=== PATIENT | female | born 1970 | race Caucasian/White ===

== ENCOUNTER 2018-01-26 16:34 | Emergency (ER) | payer BC, OTHER ==
[2018-01-26 16:52] VITALS: RESP 18
[2018-01-26] MEDS ORDERED: SODIUM CHLORIDE 0.9% 1,000 ML IV STA (16:57)
[2018-01-26] MEDS ORDERED: MECLIZINE 12.5 MG TAB PO STA (16:57)
[2018-01-26] MEDS ORDERED: ONDANSETRON 4 MG/2 ML VIAL IVP STA (17:18)
--- NOTE | 2018-01-26 17:50 | ED ---
Dizziness HPI - General Chief Complaint: Dizziness Stated Complaint: dizziness/vomiting Time Seen by Provider: 01/26/18 16:57 Source: patient, RN notes reviewed Mode of arrival: ambulatory Limitations: no limitations - History of Present Illness Initial Comments: 47-year-old female presents emergency Department with chief complaint of dizziness. Patient states symptoms started around 2 PM while at work. She states that she had a leave that she did not feel well. She states she did recently dizzy and she has been vomiting. She states dizziness is better at rest and she states it's essentially gone when she is not moving. Patient states that she's never had any like this in the past. She had minimal runny nose this morning denies any ear pain, severe nasal congestion, cough, chest pain, headache, blurred vision, focal weakness. Patient denies any head trauma. Denies any abdominal pain. Patient states she has had a stress test with the last one year but no acute abnormality she has no history of hypertension, diabetes - Related Data Previous Rx's Medication Instructions Recorded Meclizine [Antivert] 25 mg PO TID PRN #15 tab 01/26/18 Ondansetron Odt [Zofran Odt] 4 mg PO Q8HR PRN #10 tab 01/26/18 Allergies Allergy/AdvReac Type Severity Reaction Status Date / Time No Known Allergies Allergy Verified 01/26/18 17:11 Review of Systems ROS Statement: Those systems with pertinent positive or pertinent negative responses have been documented in the HPI. ROS Other: All systems not noted in ROS Statement are negative. Past Medical History Past Medical History: No Reported History History of Any Multi-Drug Resistant Organisms: None Reported Past Surgical History: Hysterectomy Past Psychological History: No Psychological Hx Reported Smoking Status: Never smoker Past Alcohol Use History: Occasional General Exam Limitations: no limitations General appearance: alert, in no apparent distress Head exam: Present: atraumatic, normocephalic, normal inspection Eye exam: Present: normal appearance, PERRL, EOMI. Absent: scleral icterus, conjunctival injection, periorbital swelling ENT exam: Present: normal exam, normal oropharynx, mucous membranes moist, TM's normal bilaterally, normal external ear exam Neck exam: Present: normal inspection, full ROM. Absent: tenderness, meningismus, lymphadenopathy Respiratory exam: Present: normal lung sounds bilaterally. Absent: respiratory distress, wheezes, rales, rhonchi, stridor Cardiovascular Exam: Present: regular rate, normal rhythm, normal heart sounds. Absent: systolic murmur, diastolic murmur, rubs, gallop, clicks GI/Abdominal exam: Present: soft, normal bowel sounds. Absent: distended, tenderness, guarding, rebound, rigid Back exam: Absent: CVA tenderness (R), CVA tenderness (L) Neurological exam: Present: alert, oriented X3, CN II-XII intact Skin exam: Present: warm, dry, intact, normal color. Absent: rash Course Vital Signs 01/26/18 01/26/18 16:49 19:25 Temperature 98.1 F Pulse Rate 65 61 Respiratory 18 18 Rate Blood Pressure 159/79 151/89 O2 Sat by Pulse 100 98 Oximetry - Reevaluation(s) Reevaluation #1: 01/26/18 19:53 Patient does feel improved at this time she does have mild residual dizziness. Reevaluation #2: 01/26/18 20:07 Patient was ambulated with me with no difficulty. EKG Findings - EKG Comments: EKG Findings:: EKG performed at 17:50 normal sinus rhythm with rate of 72 LA 148 QRS 102/ QtQTC 418/457 Medical Decision Making - Medical Decision Making 47-year-old female presents emergency Department for complaints of dizziness worse with movement. Patient had lab work, urinalysis, EKG which is unremarkable. She did have improvement with Antivert, antiemetics. Patient will be discharged with antiemetics, Antivert. Patient will return for any worsening symptoms and follow-up with her PCP. - Lab Data Result diagrams: 01/26/18 17:29 01/26/18 17:29 Lab Results 01/26/18 01/26/18 01/26/18 Range/Units 17:29 17:29 17:29 WBC 12.3 H (3.8-10.6) k/uL RBC 4.44 (3.80-5.40) m/uL Hgb 12.7 (11.4-16.0) gm/dL Hct 36.7 (34.0-46.0) % MCV 82.8 (80.0-100.0) fL MCH 28.6 (25.0-35.0) pg MCHC 34.6 (31.0-37.0) g/dL RDW 13.2 (11.5-15.5) % Plt Count 287 (150-450) k/uL Neutrophils % 88 % Lymphocytes % 8 % Monocytes % 3 % Eosinophils % 1 % Basophils % 0 % Neutrophils # 10.8 H (1.3-7.7) k/uL Lymphocytes # 1.0 (1.0-4.8) k/uL Monocytes # 0.3 (0-1.0) k/uL Eosinophils # 0.1 (0-0.7) k/uL Basophils # 0.0 (0-0.2) k/uL Sodium 140 (137-145) mmol/L Potassium 3.8 (3.5-5.1) mmol/L Chloride 107 (98-107) mmol/L Carbon Dioxide 23 (22-30) mmol/L Anion Gap 10 mmol/L BUN 13 (7-17) mg/dL Creatinine 0.67 (0.52-1.04) mg/dL Est GFR (CKD-EPI)AfAm >90 (>60 ml/min/1.73 sqM) Est GFR (CKD-EPI)NonAf >90 (>60 ml/min/1.73 sqM) Glucose 126 H (74-99) mg/dL Calcium 9.9 (8.4-10.2) mg/dL Magnesium 1.8 (1.6-2.3) mg/dL Total Bilirubin 0.5 (0.2-1.3) mg/dL AST 46 H (14-36) U/L ALT 71 H (9-52) U/L Alkaline Phosphatase 64 (38-126) U/L Troponin I <0.012 (0.000-0.034) ng/mL Total Protein 8.2 (6.3-8.2) g/dL Albumin 4.8 (3.5-5.0) g/dL Urine Color Urine Appearance (Clear) Urine pH (5.0-8.0) Ur Specific [place] (1.001-1.035) Urine Protein (Negative) Urine Glucose (UA) (Negative) Urine Ketones (Negative) Urine Blood (Negative) Urine Nitrite (Negative) Urine Bilirubin (Negative) Urine Urobilinogen (<2.0) mg/dL Ur Leukocyte Esterase (Negative) Urine RBC (0-5) /hpf Urine WBC (0-5) /hpf Ur Squamous Epith Cells (0-4) /hpf Urine Mucus (None) /hpf 01/26/18 Range/Units 18:55 WBC (3.8-10.6) k/uL RBC (3.80-5.40) m/uL Hgb (11.4-16.0) gm/dL Hct (34.0-46.0) % MCV (80.0-100.0) fL MCH (25.0-35.0) pg MCHC (31.0-37.0) g/dL RDW (11.5-15.5) % Plt Count (150-450) k/uL Neutrophils % % Lymphocytes % % Monocytes % % Eosinophils % % Basophils % % Neutrophils # (1.3-7.7) k/uL Lymphocytes # (1.0-4.8) k/uL Monocytes # (0-1.0) k/uL Eosinophils # (0-0.7) k/uL Basophils # (0-0.2) k/uL Sodium (137-145) mmol/L Potassium (3.5-5.1) mmol/L Chloride (98-107) mmol/L Carbon Dioxide (22-30) mmol/L Anion Gap mmol/L BUN (7-17) mg/dL Creatinine (0.52-1.04) mg/dL Est GFR (CKD-EPI)AfAm (>60 ml/min/1.73 sqM) Est GFR (CKD-EPI)NonAf (>60 ml/min/1.73 sqM) Glucose (74-99) mg/dL Calcium (8.4-10.2) mg/dL Magnesium (1.6-2.3) mg/dL Total Bilirubin (0.2-1.3) mg/dL AST (14-36) U/L ALT (9-52) U/L Alkaline Phosphatase (38-126) U/L Troponin I (0.000-0.034) ng/mL Total Protein (6.3-8.2) g/dL Albumin (3.5-5.0) g/dL Urine Color Yellow Urine Appearance Cloudy H (Clear) Urine pH 7.0 (5.0-8.0) Ur Specific [place] 1.012 (1.001-1.035) Urine Protein Trace H (Negative) Urine Glucose (UA) Negative (Negative) Urine Ketones Negative (Negative) Urine Blood Negative (Negative) Urine Nitrite Negative (Negative) Urine Bilirubin Negative (Negative) Urine Urobilinogen <2.0 (<2.0) mg/dL Ur Leukocyte Esterase Negative (Negative) Urine RBC <1 (0-5) /hpf Urine WBC 1 (0-5) /hpf Ur Squamous Epith Cells 5 H (0-4) /hpf Urine Mucus Rare H (None) /hpf Disposition Clinical Impression: Vertigo Disposition: HOME SELF-CARE Condition: Stable Instructions: Dizziness (ED) Additional Instructions: Please return to the Emergency Department if symptoms worsen or any other concerns. Prescriptions: Meclizine [Antivert] 25 mg PO TID PRN #15 tab PRN Reason: Vertigo Ondansetron Odt [Zofran Odt] 4 mg PO Q8HR PRN #10 tab PRN Reason: Nausea Is patient prescribed a controlled substance at d/c from ED?: No Referrals: Nael Nielsen DO [Primary Care Provider] - 1-2 days Time of Disposition: 20:07
[2018-01-26 18:11] LABS: ALT 71 U/L (9-52); AST 46 U/L (14-36); Albumin 4.8 g/dL (3.5-5.0); Alkaline Phosphatase 64 U/L (38-126); Anion Gap 10 mmol/L; Basophils % (A) 0 %; Blood Urea Nitrogen 13 mg/dL (7-17); Calcium 9.9 mg/dL (8.4-10.2); Carbon Dioxide 23 mmol/L (22-30); Chloride 107 mmol/L (98-107); Eosinophils # (A) 0.1 k/uL (0-0.7); Eosinophils % (A) 1 %; Glucose 126 mg/dL (74-99); HCT 36.7 % (34.0-46.0); HGB 12.7 gm/dL (11.4-16.0); Lymphocytes % (A) 8 %; MCH 28.6 pg (25.0-35.0); MCHC 34.6 g/dL (31.0-37.0); MCV 82.8 fL (80.0-100.0); Magnesium 1.8 mg/dL (1.6-2.3); Mean Platelet Volume 6.8; Monocytes # (A) 0.3 k/uL (0-1.0); Monocytes % (A) 3 %; Neutrophils # (A) 10.8 k/uL (1.3-7.7); Neutrophils % (A) 88 %; Platelet Count 287 k/uL (150-450); Potassium 3.8 mmol/L (3.5-5.1); RBC 4.44 m/uL (3.80-5.40); RDW 13.2 % (11.5-15.5); Sodium 140 mmol/L (137-145); Total Bilirubin 0.5 mg/dL (0.2-1.3); Total Protein 8.2 g/dL (6.3-8.2); WBC 12.3 k/uL (3.8-10.6)
[2018-01-26] MEDS ORDERED: METOCLOPRAMIDE 5 MG/ML 2 ML VIAL IVP STA (18:58)
--- NOTE | 2018-01-26 19:16 | XR ---
EXAMINATION: XR chest 2V DATE AND TIME: 01/26/2018 5:57 PM CLINICAL INDICATION: Dizziness TECHNIQUE: PA and lateral COMPARISON: None. FINDINGS: The lungs are clear. The pleural spaces are negative. The cardiac silhouette is not enlarged. The remainder of the mediastinal silhouette is unremarkable. The skeletal structures and soft tissues are negative for acute findings. IMPRESSION: NO ACUTE PROCESS.
[2018-01-26 19:23] LABS: Appearance,Urine Cloudy (Clear); Bilirubin,Urine Negative (Negative); Blood,Urine Negative (Negative); Color,Urine Yellow; Glucose,Urine (UA) Negative (Negative); Ketones,Urine Negative (Negative); Leukocyte Esterase,Urine Negative (Negative); Mucus,Urine Rare /hpf; Nitrite,Urine Negative (Negative); Protein,Urine Trace (Negative); RBC,Urine <1 /hpf (0-5); Specific Gravity,Urine 1.012 (1.001-1.035); Squamous Epithelial Cell,Urine 5 /hpf (0-4); Urobilinogen,Urine <2.0 mg/dL (<2.0); WBC,Urine 1 /hpf (0-5)
[2018-01-26 20:51] VITALS: BP 134/81; PULSE 69; TEMP 98.2
== END 2018-01-26 20:51 | disposition home or self-care (01) ==
LOC: EC 16:34
DX: R42 Dizziness and giddiness (principal); R11.10 Vomiting, unspecified; R09.89 Other specified symptoms and signs involving the circulatory and respiratory systems
CPT/HCPCS: 36415; 93005; 80053; 83735; 84484; 85025; 81001; 71046; 99284; 96374; 96375; 96361 ×3; J2765; J2405

== ENCOUNTER 2019-05-16 10:30 | Emergency (ER) | payer BC, OTHER ==
[2019-05-16 10:58] VITALS: RESP 18; TEMP 98
[2019-05-16] MEDS ORDERED: SODIUM CHLORIDE 0.9% 1,000 ML IV STA (10:59)
[2019-05-16 11:30] LABS: Basophils % (A) 0 %; Eosinophils # (A) 0.1 k/uL (0-0.7); Eosinophils % (A) 1 %; HCT 38.5 % (34.0-46.0); HGB 13.1 gm/dL (11.4-16.0); Lymphocytes # (A) 1.1 k/uL (1.0-4.8); Lymphocytes % (A) 16 %; MCH 28.3 pg (25.0-35.0); MCHC 34.2 g/dL (31.0-37.0); MCV 82.9 fL (80.0-100.0); Mean Platelet Volume 7.4; Monocytes # (A) 0.4 k/uL (0-1.0); Monocytes % (A) 6 %; Neutrophils # (A) 5.1 k/uL (1.3-7.7); Neutrophils % (A) 75 %; Platelet Count 277 k/uL (150-450); RBC 4.64 m/uL (3.80-5.40); RDW 13.4 % (11.5-15.5); WBC 6.8 k/uL (3.8-10.6)
[2019-05-16 11:35] LABS: Appearance,Urine Cloudy (Clear); Bacteria,Urine Rare /hpf; Bilirubin,Urine Negative (Negative); Blood,Urine Negative (Negative); Color,Urine Yellow; Glucose,Urine (UA) Negative (Negative); Hyaline Casts,Urine 1 /lpf (0-2); Ketones,Urine Negative (Negative); Leukocyte Esterase,Urine Trace (Negative); Mucus,Urine Many /hpf; Nitrite,Urine Negative (Negative); Protein,Urine Trace (Negative); RBC,Urine 1 /hpf (0-5); Specific Gravity,Urine 1.024 (1.001-1.035); Squamous Epithelial Cell,Urine 11 /hpf (0-4); WBC,Urine 3 /hpf (0-5)
[2019-05-16 11:41] LABS: ALT 22 U/L (4-34); AST 34 U/L (14-36); African American GFR (CKD) >90 (>60 ml/min/1.73 sqM); Albumin 4.6 g/dL (3.5-5.0); Alkaline Phosphatase 55 U/L (38-126); Amylase 53 U/L (30-110); Anion Gap 8 mmol/L; Blood Urea Nitrogen 15 mg/dL (7-17); Calcium 9.8 mg/dL (8.4-10.2); Carbon Dioxide 24 mmol/L (22-30); Chloride 106 mmol/L (98-107); Glucose 106 mg/dL (74-99); Non-African American GFR(CKD) 87 (>60 ml/min/1.73 sqM); Potassium 4.7 mmol/L (3.5-5.1); Sodium 138 mmol/L (137-145); Total Bilirubin 0.8 mg/dL (0.2-1.3); Total Protein 7.8 g/dL (6.3-8.2)
--- NOTE | 2019-05-16 11:54 | ED ---
Abdominal Pain HPI - General Chief Complaint: Abdominal Pain Stated Complaint: abd pain, constipation Time Seen by Provider: 05/16/19 10:45 Source: patient, RN notes reviewed Mode of arrival: ambulatory Limitations: no limitations - History of Present Illness Initial Comments: 49-year-old female presents emergency from from urgent care chief complaint a bdominal pain. Patient states been having increasing abdominal pain since Thursday. Patient feels is related to constipation. She has not had a bowel movement since and today. Patient states she feels pressure when she even urinates. Patient denies known fever or chills no nausea vomiting no prior abdominal surgeries. She doesn't that she's had dietary changes which most likely leading to this problem. - Related Data Previous Rx's Medication Instructions Recorded Meclizine [Antivert] 25 mg PO TID PRN #15 tab 01/26/18 Ondansetron Odt [Zofran Odt] 4 mg PO Q8HR PRN #10 tab 01/26/18 Amoxicillin/Potassium Clav 1 tab PO Q12HR #20 tab 05/16/19 [Augmentin 875-125 Tablet] Allergies Allergy/AdvReac Type Severity Reaction Status Date / Time No Known Allergies Allergy Verified 05/16/19 10:58 Review of Systems ROS Statement: Those systems with pertinent positive or pertinent negative responses have been documented in the HPI. ROS Other: All systems not noted in ROS Statement are negative. Past Medical History Past Medical History: No Reported History History of Any Multi-Drug Resistant Organisms: None Reported Past Surgical History: Hysterectomy Past Psychological History: No Psychological Hx Reported Smoking Status: Never smoker Past Alcohol Use History: Occasional General Exam Limitations: no limitations General appearance: alert, in no apparent distress Head exam: Present: atraumatic, normocephalic, normal inspection Eye exam: Present: normal appearance, PERRL, EOMI. Absent: scleral icterus, conjunctival injection, periorbital swelling Neck exam: Present: normal inspection, full ROM. Absent: tenderness, menin gismus, lymphadenopathy Respiratory exam: Present: normal lung sounds bilaterally. Absent: respiratory distress, wheezes, rales, rhonchi, stridor Cardiovascular Exam: Present: regular rate, normal rhythm, normal heart sounds. Absent: systolic murmur, diastolic murmur, rubs, gallop, clicks GI/Abdominal exam: Present: soft, tenderness (Mild to moderate lower), normal bowel sounds. Absent: distended, guarding, rebound, rigid Back exam: Absent: CVA tenderness (R), CVA tenderness (L) Psychiatric exam: Present: normal affect, normal mood Skin exam: Present: warm, dry, intact, normal color. Absent: rash Course Vital Signs 05/16/19 10:55 Temperature 98.0 F Pulse Rate 69 Respiratory 18 Rate Blood Pressure 142/65 O2 Sat by Pulse 98 Oximetry Medical Decision Making - Medical Decision Making CT shows evidence of diverticulitis. Patient's labs, vitals unremarkable. Patient will be discharged with Augmentin return parameters were discussed. - Lab Data Result diagrams: 05/16/19 11:03 05/16/19 11:03 Lab Results 05/16/19 05/16/19 05/16/19 Range/Units 11:03 11:03 11:03 WBC 6.8 (3.8-10.6) k/uL RBC 4.64 (3.80-5.40) m/uL Hgb 13.1 (11.4-16.0) gm/dL Hct 38.5 (34.0-46.0) % MCV 82.9 (80.0-100.0) fL MCH 28.3 (25.0-35.0) pg MCHC 34.2 (31.0-37.0) g/dL RDW 13.4 (11.5-15.5) % Plt Count 277 (150-450) k/uL Neutrophils % 75 % Lymphocytes % 16 % Monocytes % 6 % Eosinophils % 1 % Basophils % 0 % Neutrophils # 5.1 (1.3-7.7) k/uL Lymphocytes # 1.1 (1.0-4.8) k/uL Monocytes # 0.4 (0-1.0) k/uL Eosinophils # 0.1 (0-0.7) k/uL Basophils # 0.0 (0-0.2) k/uL Sodium (137-145) mmol/L Potassium (3.5-5.1) mmol/L Chloride (98-107) mmol/L Carbon Dioxide (22-30) mmol/L Anion Gap mmol/L BUN (7-17) mg/dL Creatinine (0.52-1.04) mg/dL Est GFR (CKD-EPI)AfAm (>60 ml/min/1.73 sqM) Est GFR (CKD-EPI)NonAf (>60 ml/min/1.73 sqM) Glucose (74-99) mg/dL Plasma Lactic Acid Sudhakar 0.7 (0.7-2.0) mmol/L Calcium (8.4-10.2) mg/dL Total Bilirubin (0.2-1.3) mg/dL AST (14-36) U/L ALT (4-34) U/L Alkaline Phosphatase (38-126) U/L Total Protein (6.3-8.2) g/dL Albumin (3.5-5.0) g/dL Amylase (30-110) U/L Lipase (23-300) U/L Urine Color Yellow Urine Appearance Cloudy H (Clear) Urine pH 5.0 (5.0-8.0) Ur Specific [place] 1.024 (1.001-1.035) Urine Protein Trace H (Negative) Urine Glucose (UA) Negative (Negative) Urine Ketones Negative (Negative) Urine Blood Negative (Negative) Urine Nitrite Negative (Negative) Urine Bilirubin Negative (Negative) Urine Urobilinogen 2.0 (<2.0) mg/dL Ur Leukocyte Esterase Trace H (Negative) Urine RBC 1 (0-5) /hpf Urine WBC 3 (0-5) /hpf Ur Squamous Epith Cells 11 H (0-4) /hpf Urine Bacteria Rare H (None) /hpf Hyaline Casts 1 (0-2) /lpf Urine Mucus Many H (None) /hpf 05/16/19 Range/Units 11:03 WBC (3.8-10.6) k/uL RBC (3.80-5.40) m/uL Hgb (11.4-16.0) gm/dL Hct (34.0-46.0) % MCV (80.0-100.0) fL MCH (25.0-35.0) pg MCHC (31.0-37.0) g/dL RDW (11.5-15.5) % Plt Count (150-450) k/uL Neutrophils % % Lymphocytes % % Monocytes % % Eosinophils % % Basophils % % Neutrophils # (1.3-7.7) k/uL Lymphocytes # (1.0-4.8) k/uL Monocytes # (0-1.0) k/uL Eosinophils # (0-0.7) k/uL Basophils # (0-0.2) k/uL Sodium 138 (137-145) mmol/L Potassium 4.7 (3.5-5.1) mmol/L Chloride 106 (98-107) mmol/L Carbon Dioxide 24 (22-30) mmol/L Anion Gap 8 mmol/L BUN 15 (7-17) mg/dL Creatinine 0.80 (0.52-1.04) mg/dL Est GFR (CKD-EPI)AfAm >90 (>60 ml/min/1.73 sqM) Est GFR (CKD-EPI)NonAf 87 (>60 ml/min/1.73 sqM) Glucose 106 H (74-99) mg/dL Plasma Lactic Acid [place]ak[place] (0.7-2.0) mmol/L Calcium 9.8 (8.4-10.2) mg/dL Total Bilirubin 0.8 (0.2-1.3) mg/dL AST 34 (14-36) U/L ALT 22 (4-34) U/L Alkaline Phosphatase 55 (38-126) U/L Total Protein 7.8 (6.3-8.2) g/dL Albumin 4.6 (3.5-5.0) g/dL Amylase 53 (30-110) U/L Lipase 51 (23-300) U/L Urine Color Urine Appearance (Clear) Urine pH (5.0-8.0) Ur Specific [place] (1.001-1.035) Urine Protein (Negative) Urine Glucose (UA) (Negative) Urine Ketones (Negative) Urine Blood (Negative) Urine Nitrite (Negative) Urine Bilirubin (Negative) Urine Urobilinogen (<2.0) mg/dL Ur Leukocyte Esterase (Negative) Urine RBC (0-5) /hpf Urine WBC (0-5) /hpf Ur Squamous Epith Cells (0-4) /hpf Urine Bacteria (None) /hpf Hyaline Casts (0-2) /lpf Urine Mucus (None) /hpf Disposition Clinical Impression: Diverticulitis Disposition: HOME SELF-CARE Condition: Stable Instructions (If sedation given, give patient instructions): Diverticulitis ( ED), Diverticulitis Diet (ED) Additional Instructions: Please return to the Emergency Department if symptoms worsen or any other concerns. Prescriptions: Amoxicillin/Potassium Clav [Augmentin 875-125 Tablet] 1 tab PO Q12HR #20 tab Is patient prescribed a controlled substance at d/c from ED?: No Referrals: Nael Nielsen DO [Primary Care Provider] - 1-2 days Time of Disposition: 12:15
--- NOTE | 2019-05-16 11:59 | CT ---
EXAMINATION TYPE: CT abdomen pelvis w con DATE OF EXAM: 05/16/2019 COMPARISON: Prior CT 08/30/2009 HISTORY: Lower abdominal pain and constipation. CT DLP: 1280.5 mGycm Automated exposure control for dose reduction was used. TECHNIQUE: Helical acquisition of images from the lung bases through the pelvis have been completed. CONTRAST: Performed without Oral Contrast and with IV Contrast, patient injected with 100 mL of Isovue 300. FINDINGS: LUNG BASES: No significant abnormality is appreciated. AORTA: No significant abnormality is appreciated. LIVER/GB: No significant abnormality is appreciated. PANCREAS: No significant abnormality is seen. SPLEEN: No significant abnormality is seen. ADRENALS: No significant abnormality is seen. KIDNEYS: Upper pole right kidney shows a low dense focus measuring 2.4 cm showing cystic [place] m easurements, no evident nephrolithiasis or ureteral calculus bilaterally. REPRODUCTIVE ORGANS: Stable, patient is post hysterectomy, left ovary thought to be stable in appeara nce. Some low density present in the right adnexal region shows a stable appearance and may be indica tive of underlying scar. BOWEL: Some diverticular change again noted associated with the colon. Loss of fat plane present pos terior to the sigmoid colon at the level of patient's hysterectomy. FREE AIR: No Free Air visible. ASCITES: None visible. PELVIC ADENOPATHY: None visualized. RETROPERITONEAL ADENOPATHY: No Retroperitoneal Adenopathy visible. URINARY BLADDER: No significant abnormality is seen. OSSEOUS STRUCTURES: Degenerative disc changes are present in the visualized spine. IMPRESSION: SOME INFLAMMATORY CHANGE MAY BE INDICATIVE OF DIVERTICULITIS IN THE PELVIS.
[2019-05-16 12:25] VITALS: BP 123/85; PULSE 80
== END 2019-05-16 12:21 | disposition home or self-care (01) ==
LOC: EC 10:30
DX: K57.92 Diverticulitis of intestine, part unspecified, without perforation or abscess without bleeding (principal)
CPT/HCPCS: 36415; 80053; 82150; 83605; 83690; 85025; 81001; 74177; 99284; 96360; Q9967

== ENCOUNTER 2020-01-23 11:36 | Emergency (ER) | payer OTHER, BC ==
[2020-01-23 11:50] VITALS: RESP 18
[2020-01-23] MEDS ORDERED: SODIUM CHLORIDE 0.9% 1,000 ML IV STA (12:15)
[2020-01-23] MEDS ORDERED: ONDANSETRON 4 MG/2 ML VIAL IVP STA (12:15)
[2020-01-23] MEDS ORDERED: MORPHINE SULFATE 4 MG/ML SYRINGE IV STA (12:15)
--- NOTE | 2020-01-23 12:26 | ED ---
General Adult HPI - General Chief complaint: Nausea/Vomiting/Diarrhea Stated complaint: Abd Pain, +Covid Time Seen by Provider: 01/23/20 12:07 Source: patient, RN notes reviewed, old records reviewed Mode of arrival: ambulatory Limitations: no limitations - History of Present Illness Initial comments: 9-year-old female presenting for evaluation of abdominal pain and nausea vomiting and diarrhea. Patient was diagnosed with coronavirus approximately one week ago. She had cough and URI symptoms which have mostly resolved. She is presenting today with generalized abdominal pain which is crampy in nature. She did report an episode of lightheadedness and near syncope while getting up from the toilet. She had a minor head trauma. No loss consciousness. No anticoagulation. Patient states she had some diarrhea followed by severe crampy abdominal pain. Diarrhea occurred yesterday. She additionally had some vomiting. No fever. - Related Data Home Medications Medication Instructions Recorded Confirmed Acetaminophen Tab [Tylenol Tab] 1,000 mg PO Q6HR PRN 01/23/20 01/23/20 Bismuth Subsalicylate 524 mg PO Q4H PRN 01/23/20 01/23/20 [Pepto-Bismol] Ibuprofen [Motrin Ib] 600 mg PO Q8H PRN 01/23/20 01/23/20 Simethicone [Gas-X] 125 mg PO Q6H PRN 01/23/20 01/23/20 Allergies Allergy/AdvReac Type Severity Reaction Status Date / Time No Known Allergies Allergy Verified 01/23/20 13:14 Review of Systems ROS Statement: Those systems with pertinent positive or pertinent negative responses have been documented in the HPI. ROS Other: All systems not noted in ROS Statement are negative. Past Medical History Past Medical History: No Reported History History of Any Multi-Drug Resistant Organisms: None Reported Past Surgical History: Hysterectomy Past Psychological History: No Psychological Hx Reported Smoking Status: Never smoker Past Alcohol Use History: Occasional Past Drug Use History: None Reported General Exam Limitations: no limitations General appearance: alert, in no apparent distress Head exam: Present: atraumatic, normocephalic Eye exam: Present: normal appearance, PERRL ENT exam: Present: mucous membranes dry Neck exam: Present: normal inspection. Absent: tenderness, meningismus Respiratory exam: Present: normal lung sounds bilaterally. Absent: respiratory distress Cardiovascular Exam: Present: regular rate, normal rhythm GI/Abdominal exam: Present: soft. Absent: distended, tenderness, guarding, rebound Neurological exam: Present: alert, oriented X3, CN II-XII intact. Absent: motor sensory deficit Psychiatric exam: Present: normal affect, normal mood Skin exam: Present: warm, dry, intact. Absent: cyanosis, diaphoretic Course Vital Signs 01/23/20 01/23/20 11:47 14:32 Temperature 99.2 F Pulse Rate 85 88 Respiratory 18 18 Rate Blood Pressure 110/71 139/59 O2 Sat by Pulse 99 99 Oximetry Medical Decision Making - Medical Decision Making 40-year-old female with coronavirus presenting with abdominal pain nausea vomiting. Patient well-appearing with stable vitals she has normal CBC, CMP showed mild transaminitis otherwise unremarkable. CT is obtained after initial treatment did not improve the patient's symptoms. She has an enterocolitis and residual pneumonia. No other acute findings. On second reevaluation she is feeling much better. She will be discharged home with return parameters. She will continue to quarantine for an additional 10 days. - Lab Data Result diagrams: 01/23/20 12:39 01/23/20 12:39 Lab Results 01/23/20 01/23/20 01/23/20 Range/Units 12:39 12:39 14:34 WBC 8.8 (3.8-10.6) k/uL RBC 4.99 (3.80-5.40) m/uL Hgb 14.3 (11.4-16.0) gm/dL Hct 40.7 (34.0-46.0) % MCV 81.5 (80.0-100.0) fL MCH 28.6 (25.0-35.0) pg MCHC 35.1 (31.0-37.0) g/dL RDW 12.2 (11.5-15.5) % Plt Count 200 (150-450) k/uL MPV 6.7 Neutrophils % 90 % Lymphocytes % 5 % Monocytes % 3 % Eosinophils % 0 % Basophils % 1 % Neutrophils # 7.9 H (1.3-7.7) k/uL Lymphocytes # 0.5 L (1.0-4.8) k/uL Monocytes # 0.2 (0-1.0) k/uL Eosinophils # 0.0 (0-0.7) k/uL Basophils # 0.1 (0-0.2) k/uL Sodium 136 L (137-145) mmol/L Potassium 4.0 (3.5-5.1) mmol/L Chloride 102 (98-107) mmol/L Carbon Dioxide 25 (22-30) mmol/L Anion Gap 9 mmol/L BUN 14 (7-17) mg/dL Creatinine 0.79 (0.52-1.04) mg/dL Est GFR (CKD-EPI)AfAm >90 (>60 ml/min/1.73 sqM) Est GFR (CKD-EPI)NonAf 89 (>60 ml/min/1.73 sqM) Glucose 110 H (74-99) mg/dL Calcium 9.9 (8.4-10.2) mg/dL Total Bilirubin 1.0 (0.2-1.3) mg/dL AST 97 H (14-36) U/L ALT 78 H (4-34) U/L Alkaline Phosphatase 99 (38-126) U/L Total Protein 7.8 (6.3-8.2) g/dL Albumin 4.3 (3.5-5.0) g/dL Amylase 47 (30-110) U/L Lipase 37 (23-300) U/L Urine Color Yellow Urine Appearance Cloudy H (Clear) Urine pH 6.0 (5.0-8.0) Ur Specific [place] 1.028 (1.001-1.035) Urine Protein Trace H (Negative) Urine Glucose (UA) Negative (Negative) Urine Ketones Negative (Negative) Urine Blood Trace H (Negative) Urine Nitrite Negative (Negative) Urine Bilirubin Negative (Negative) Urine Urobilinogen 3.0 (<2.0) mg/dL Ur Leukocyte Esterase Negative (Negative) Urine RBC 4 (0-5) /hpf Urine WBC 5 (0-5) /hpf Ur Squamous Epith Cells 4 (0-4) /hpf Urine Bacteria Rare H (None) /hpf Hyaline Casts 3 H (0-2) /lpf Urine Mucus Many H (None) /hpf Disposition Clinical Impression: Dehydration, Abdominal pain, COVID-19 Disposition: HOME SELF-CARE Condition: Fair Instructions (If sedation given, give patient instructions): Acute Nausea and Vomiting in Children (ED), Abdominal Pain (ED) Additional Instructions: please continue to quarantine for an additional 10 days. Is patient prescribed a controlled substance at d/c from ED?: No Referrals: Nael Nielsen DO [Primary Care Provider] - 1-2 days Time of Disposition: 15:50
[2020-01-23 12:58] LABS: Basophils # (A) 0.1 k/uL (0-0.2); Basophils % (A) 1 %; Eosinophils % (A) 0 %; HCT 40.7 % (34.0-46.0); HGB 14.3 gm/dL (11.4-16.0); Lymphocytes # (A) 0.5 k/uL (1.0-4.8); Lymphocytes % (A) 5 %; MCH 28.6 pg (25.0-35.0); MCHC 35.1 g/dL (31.0-37.0); MCV 81.5 fL (80.0-100.0); Mean Platelet Volume 6.7; Monocytes # (A) 0.2 k/uL (0-1.0); Monocytes % (A) 3 %; Neutrophils # (A) 7.9 k/uL (1.3-7.7); Neutrophils % (A) 90 %; Platelet Count 200 k/uL (150-450); RBC 4.99 m/uL (3.80-5.40); RDW 12.2 % (11.5-15.5); WBC 8.8 k/uL (3.8-10.6)
[2020-01-23 13:03] LABS: ALT 78 U/L (4-34); AST 97 U/L (14-36); African American GFR (CKD) >90 (>60 ml/min/1.73 sqM); Albumin 4.3 g/dL (3.5-5.0); Alkaline Phosphatase 99 U/L (38-126); Amylase 47 U/L (30-110); Anion Gap 9 mmol/L; Blood Urea Nitrogen 14 mg/dL (7-17); Calcium 9.9 mg/dL (8.4-10.2); Carbon Dioxide 25 mmol/L (22-30); Chloride 102 mmol/L (98-107); Glucose 110 mg/dL (74-99); Lipase 37 U/L (23-300); Non-African American GFR(CKD) 89 (>60 ml/min/1.73 sqM); Sodium 136 mmol/L (137-145); Total Protein 7.8 g/dL (6.3-8.2)
--- NOTE | 2020-01-23 13:24 | XR ---
EXAMINATION TYPE: XR KUB DATE OF EXAM: 01/23/2020 COMPARISON: NONE HISTORY: Pain TECHNIQUE: Single supine KUB image of the abdomen is obtained FINDINGS: Small bowel demonstrates a few small scattered air-fluid levels which are nonspecific. Gas and fecal material is seen in non-distended colon. No convincing evidence for pneumoperitoneum. No unusual calcifications. The lung bases are clear. The osseous structures are intact. IMPRESSION: 1. Overall nonspecific nonobstructive bowel gas pattern.
[2020-01-23] MEDS ORDERED: HYDROmorphone 0.5 MG/0.5 ML SYRINGE IVP STA (14:19)
[2020-01-23] MEDS ORDERED: SODIUM CHLORIDE 0.9% 500 ML 500 ML IV ONE (14:19)
[2020-01-23 14:57] LABS: Appearance,Urine Cloudy (Clear); Bacteria,Urine Rare /hpf; Bilirubin,Urine Negative (Negative); Blood,Urine Trace (Negative); Color,Urine Yellow; Glucose,Urine (UA) Negative (Negative); Hyaline Casts,Urine 3 /lpf (0-2); Ketones,Urine Negative (Negative); Leukocyte Esterase,Urine Negative (Negative); Mucus,Urine Many /hpf; Nitrite,Urine Negative (Negative); Protein,Urine Trace (Negative); RBC,Urine 4 /hpf (0-5); Specific Gravity,Urine 1.028 (1.001-1.035); Squamous Epithelial Cell,Urine 4 /hpf (0-4); WBC,Urine 5 /hpf (0-5)
--- NOTE | 2020-01-23 15:36 | CT ---
EXAMINATION TYPE: CT abdomen pelvis w con DATE OF EXAM: 01/23/2020 COMPARISON: 05/16/2019 HISTORY: pelvic pain, nausea CT DLP: 1301.8 mGycm CONTRAST: CT scan of the abdomen and pelvis is performed without Oral Contrast and with IV Contrast, patient in jected with 100 mL of Isovue 300. FINDINGS: LUNG BASES-: No visible nodule. Nonspecific infiltrate right lower lobe posteriorly. Correlate for de veloping pneumonia. Small left-sided pleural effusion identified. LIVER/GB: No calcified gallstones. No space occupying hepatic lesion. Biliary tree is of normal ca liber. PANCREAS: No inflammation. No distinct mass. SPLEEN: Splenomegaly noted with craniocaudal measurement of about 14 cm. No lesion seen. ADRENALS: No nodule. No thickening. KIDNEYS/BLADDER: No hydronephrosis. No nephrolithiasis. Simple cyst upper pole right kidney. Urinar y bladder grossly unremarkable. BOWEL: Normal appendix. Fluid distended right hemicolon as well as distal small bowel mild wall thic kening may reflect enterocolitis. Correlate clinically. GENITAL ORGANS: No gross abnormality. LYMPH NODES: No greater than 1cm abdominal or pelvic lymph nodes are appreciated. AORTA: No significant abnormality. OSSEOUS STRUCTURES: No significant abnormality is seen. OTHER: No significant additional abnormality is seen. IMPRESSION: 1. Nonspecific patchy focal infiltrate right upper lobe posteriorly. Correlate for developing pneumon ia. 2. Fluid distended right hemicolon as well as distal small bowel mild wall thickening may reflect ent erocolitis. Correlate clinically.
[2020-01-23 16:30] VITALS: BP 117/68; PULSE 80; TEMP 98
== END 2020-01-23 16:29 | disposition home or self-care (01) ==
LOC: EC 11:36
DX: K52.9 Noninfective gastroenteritis and colitis, unspecified (principal); U07.1 COVID-19; E86.0 Dehydration; Z90.710 Acquired absence of both cervix and uterus
CPT/HCPCS: 36415; 80053; 82150; 83690; 85025; 81001; 74018; 74177; 99285; 96374; 96375 ×2; 96361 ×2; J2270; J2405; J1170; Q9967

== ENCOUNTER → 2020-05-17 | Outpatient (CLI) | payer OTHER ==
[2020-05-17 09:56] LABS: Amorphous Sediment,Urine Rare /hpf; Appearance,Urine Cloudy (Clear); Bacteria,Urine Occasional /hpf; Bilirubin,Urine Negative (Negative); Blood,Urine Negative (Negative); Color,Urine Yellow; Glucose,Urine (UA) Negative (Negative); Ketones,Urine Negative (Negative); Leukocyte Esterase,Urine Large (Negative); Mucus,Urine Rare /hpf; Nitrite,Urine Negative (Negative); PH, Urine 6.5 (5.0-8.0); Protein,Urine Trace (Negative); RBC,Urine 4 /hpf (0-5); Specific Gravity,Urine 1.023 (1.001-1.035); Squamous Epithelial Cell,Urine 4 /hpf (0-4); WBC,Urine 16 /hpf (0-5)
[2020-05-17 15:33] LABS: Basophils # (A) 0.03 X 10*3/uL (0.00-0.10); Basophils % (A) 0.5 %; Eosinophils # (A) 0.12 X 10*3/uL (0.04-0.35); Eosinophils % (A) 1.9 %; Lymphocytes # (A) 1.46 X 10*3/uL (0.90-5.00); Lymphocytes % (A) 23.5 %; MCHC 32.5 g/dL (32.0-37.0); MCV 86.2 fL (80.0-97.0); Mean Platelet Volume 10.3 fL (9.5-12.2); Monocytes # (A) 0.54 X 10*3/uL (0.20-1.00); Monocytes % (A) 8.7 %; Neutrophils # (A) 4.04 X 10*3/uL (1.80-7.70); Neutrophils % (A) 65.2 %; Platelet Count 260 X 10*3/uL (140-440); RBC 4.64 X 10*6/uL (4.10-5.20)
[2020-05-17 20:52] LABS: T4, Free (Free Thyroxine) 1.2 ng/dL (0.80-1.80)
[2020-05-17 21:54] LABS: African American GFR (CKD) 76.1 (60.0-200.0); Anion Gap 11.6 mmol/L (4.00-12.00); Calcium 10.3 mg/dL (8.7-10.3); Carbon Dioxide 24.4 mmol/L (21.6-31.8); Chol/HDL Ratio 3.24; Folate, Serum 13.7 ng/mL; Non-African American GFR(CKD) 65.6 (60.0-200.0); Potassium 4.6 mmol/L (3.5-5.5)
== END | disposition home or self-care (01) ==
LOC: LABWHC1 08:20
PROVIDERS: ATTEND Family Medicine
DX: Z00.00 Encounter for general adult medical examination without abnormal findings (principal); R41.3 Other amnesia; E66.9 Obesity, unspecified
CPT/HCPCS: 36415; 80048; 80061; 81001; 82306; 82607; 82746; 83036; 84439; 84443; 84450; 84460; 85025; 86780

== ENCOUNTER → 2020-05-31 | Outpatient (CLI) | payer OTHER ==
--- NOTE | 2020-05-31 12:43 | US ---
EXAMINATION TYPE: US carotid duplex BILAT DATE OF EXAM: 05/31/2020 COMPARISON: NONE CLINICAL HISTORY: R41.3 other amnesia. Memory loss. No HTN. No hx TIA. EXAM MEASUREMENTS: RIGHT: Peak Systolic Velocity (PSV) cm/sec ----- Right CCA: 64.4 ----- Right ICA: 97.4 ----- Right ECA: 82.0 ICA/CCA ratio: 1.5 RIGHT: End Diastole cm/sec ----- Right CCA: 17.1 ----- Right ICA: 29.2 ----- Right ECA: 11.7 LEFT: Peak Systolic Velocity (PSV) cm/sec ----- Left CCA: 82.8 ----- Left ICA: 85.3 ----- Left ECA: 67.7 ICA/CCA ratio: 1.0 LEFT: End Diastole cm/sec ----- Left CCA: 22.0 ----- Left ICA: 31.4 ----- Left ECA: 0.0 VERTEBRALS (direction of flow): Right Vertebral: Antegrade Left Vertebral: Antegrade Rhythm: Normal No plaque. Bilateral wall thickening. No elevated velocities. No significant stenosis. IMPRESSION: No evidence for hemodynamically significant stenosis. Criteria for Assigning % of Stenosis / Diameter reduction (Estimation based on the indirect measurements of the internal carotid artery velocities (ICA PSV). 1. Normal (no stenosis)=ICA PSV < 125 cm/s: ratio < 2.0: ICA EDV<40 cm/s. 2. Less than 50% stenosis=ICA PSV < 125 cm/s: ratio < 2.0: ICA EDV<40 cm/s. 3. 50 to 69% stenosis=ICA PSV of 125 to 230 cm/s: ration 2.0 ? 4.0: ICA EDV 40-100 cm/s. 4. Greater than 70% stenosis to near occlusion= ICA PSV > 230 cm/s: ratio > 4.0: ICA EDV > 100 cm/s. 5. Near occlusion= ICA PSV velocities may be low or undetectable: variable ratio and ICA EDV. 6. Total occlusion=unable to detect flow.
== END | disposition home or self-care (01) ==
LOC: RADUSWWP 11:12
PROVIDERS: ATTEND Family Medicine
DX: R41.3 Other amnesia (principal)
CPT/HCPCS: 93880

== ENCOUNTER → 2020-06-07 | Outpatient (CLI) | payer OTHER ==
--- NOTE | 2020-06-07 10:34 | CT ---
EXAMINATION TYPE: CT brain wo con DATE OF EXAM: 06/07/2020 COMPARISON: HISTORY: Amnesia CT DLP: 1054.[address] of the brain was performed. The ventricles, basal cisterns and sulci overlying the cerebral convexities demonstrate mild enlargem ent. There is no evidence for intracranial hemorrhage or sulcal effacement. There is decreased attenuation about the periventricular white matter and deep white matter of both c erebral hemispheres, compatible with chronic small vessel ischemia. Differential diagnosis does inclu de demyelination. No mass effects are seen.No midline shift. Osseous calvarium is intact. If symptoms persist consider MRI. IMPRESSION: 1. Age related atrophic and chronic small vessel ischemic change without acute intracranial process s een at this time.
== END | disposition home or self-care (01) ==
LOC: RADCTMAIN 07:34
PROVIDERS: ATTEND Family Medicine
DX: I67.82 Cerebral ischemia (principal); G31.9 Degenerative disease of nervous system, unspecified
CPT/HCPCS: 70450

== ENCOUNTER 2020-08-25 19:00 | Emergency (ER) | payer OTHER ==
[2020-08-25 19:03] VITALS: BP 164/74; PULSE 81; RESP 19; TEMP 98.2
[2020-08-25 19:49] LABS: Basophils % (A) 0 %; Eosinophils # (A) 0.1 k/uL (0-0.7); Eosinophils % (A) 1 %; HCT 34.7 % (34.0-46.0); HGB 12.5 gm/dL (11.4-16.0); Lymphocytes % (A) 26 %; MCH 29.8 pg (25.0-35.0); MCHC 35.9 g/dL (31.0-37.0); MCV 82.8 fL (80.0-100.0); Mean Platelet Volume 6.8; Monocytes # (A) 0.4 k/uL (0-1.0); Monocytes % (A) 5 %; Neutrophils # (A) 5.3 k/uL (1.3-7.7); Neutrophils % (A) 66 %; Platelet Count 278 k/uL (150-450); RBC 4.18 m/uL (3.80-5.40); RDW 12.9 % (11.5-15.5)
--- NOTE | 2020-08-25 19:52 | US ---
EXAMINATION TYPE: US venous doppler duplex LE DATE OF EXAM: 08/25/2020 7:43 PM COMPARISON: NONE CLINICAL HISTORY: Calf swelling and pain. right leg pain for a few days, rt calf cramps and swelling, states bruising all over her body for unknown reason, no h/o dvt SIDE PERFORMED: Right TECHNIQUE: The lower extremity deep venous system is examined utilizing real time linear array sonog marcial with graded compression, doppler sonography and color-flow sonography. VESSELS IMAGED: Common Femoral Vein Deep Femoral Vein Greater Saphenous Vein * Femoral Vein Popliteal Vein Small Saphenous Vein * Proximal Calf Veins (* superficial vessels) Right Leg: Negative for DVT IMPRESSION: No evidence of right lower extremity DVT.
[2020-08-25 19:57] LABS: ALT 18 U/L (4-34); AST 29 U/L (14-36); African American GFR (CKD) >90 (>60 ml/min/1.73 sqM); Albumin 4.4 g/dL (3.5-5.0); Alkaline Phosphatase 56 U/L (38-126); Anion Gap 7 mmol/L; Blood Urea Nitrogen 14 mg/dL (7-17); Calcium 9.6 mg/dL (8.4-10.2); Carbon Dioxide 28 mmol/L (22-30); Chloride 108 mmol/L (98-107); Glucose 116 mg/dL (74-99); Non-African American GFR(CKD) 80 (>60 ml/min/1.73 sqM); Potassium 3.7 mmol/L (3.5-5.1); Sodium 143 mmol/L (137-145); Total Bilirubin 0.4 mg/dL (0.2-1.3)
--- NOTE | 2020-08-25 20:10 | ED ---
Extremity Problem HPI - General Chief complaint: Extremity Problem,Nontraumatic Stated complaint: rt leg swelling Time Seen by Provider: 08/25/20 19:04 Source: patient, RN notes reviewed Mode of arrival: ambulatory Limitations: no limitations - History of Present Illness Initial comments: Patient is a 50-year-old female that presents to emergency department complaining of right calf pain and swelling. She notes that this started happening after she did ligate the gym. She noted that her leg became sore and a little bit swollen. She denied any history of clotting disorders or DVTs in the past. She was in no apparent distress or pain while sitting up in bed during exam and interview. She had full sensation range of motion and strength in her right lower extremity. She denied any other complaints or issues at this time. She stated that her pain was about a 4 out of 10 but she took Motrin prior to arrival and did not want anything further. She denied any chest pain shortness breath headache nausea vomiting diarrhea constipation fever fatigue chills. - Related Data Home Medications Medication Instructions Recorded Confirmed Acetaminophen Tab [Tylenol Tab] 1,000 mg PO Q6HR PRN 01/23/20 01/23/20 Bismuth Subsalicylate 524 mg PO Q4H PRN 01/23/20 01/23/20 [Pepto-Bismol] Ibuprofen [Motrin Ib] 600 mg PO Q8H PRN 01/23/20 01/23/20 Simethicone [Gas-X] 125 mg PO Q6H PRN 01/23/20 01/23/20 Allergies Allergy/AdvReac Type Severity Reaction Status Date / Time No Known Allergies Allergy Verified 08/25/20 19:03 Review of Systems ROS Statement: Those systems with pertinent positive or pertinent negative responses have been documented in the HPI. ROS Other: All systems not noted in ROS Statement are negative. Past Medical History Past Medical History: No Reported History History of Any Multi-Drug Resistant Organisms: None Reported Past Surgical History: Hysterectomy Past Psychological History: No Psychological Hx Reported Smoking Status: Never smoker Past Alcohol Use History: Occasional Past Drug Use History: None Reported General Exam Limitations: no limitations General appearance: alert, in no apparent distress Head exam: Present: atraumatic, normocephalic, normal inspection Eye exam: Present: normal appearance, PERRL, EOMI. Absent: scleral icterus, conjunctival injection, periorbital swelling Neck exam: Present: normal inspection Respiratory exam: Present: normal lung sounds bilaterally. Absent: respiratory distress, wheezes, rales, rhonchi, stridor Cardiovascular Exam: Present: regular rate, normal rhythm, normal heart sounds. Absent: systolic murmur, diastolic murmur, rubs, gallop, clicks Right Lower Leg exam: Present: normal inspection, full ROM, tenderness (Calf tenderness), swelling (Minimal). Absent: abrasion, laceration, ecchymosis, deformity, dislocation, erythema, palpable cord, Homans' sign Neurological exam: Present: alert, oriented X3 Psychiatric exam: Present: normal affect, normal mood Skin exam: Present: warm, dry, intact, normal color. Absent: rash Course Vital Signs 08/25/20 19:01 Temperature 98.2 F Pulse Rate 81 Respiratory 19 Rate Blood Pressure 164/74 O2 Sat by Pulse 98 Oximetry Medical Decision Making - Medical Decision Making Patient is a 50-year-old female that presents emergency department complaining of right calf tenderness and swelling. Basic labs, ultrasound of the right lower extremity ordered. Labs unremarkable. Ultrasound of the right lower extremities negative for any DVTs. Case discussed with Dr. Connolly, patient can discharge home with follow-up primary care. - Lab Data Result diagrams: 08/25/20 19:22 08/25/20 19:22 Lab Results 08/25/20 08/25/20 Range/Units 19:22 19:22 WBC 8.0 (3.8-10.6) k/uL RBC 4.18 (3.80-5.40) m/uL Hgb 12.5 (11.4-16.0) gm/dL Hct 34.7 (34.0-46.0) % MCV 82.8 (80.0-100.0) fL MCH 29.8 (25.0-35.0) pg MCHC 35.9 (31.0-37.0) g/dL RDW 12.9 (11.5-15.5) % Plt Count 278 (150-450) k/uL MPV 6.8 Neutrophils % 66 % Lymphocytes % 26 % Monocytes % 5 % Eosinophils % 1 % Basophils % 0 % Neutrophils # 5.3 (1.3-7.7) k/uL Lymphocytes # 2.0 (1.0-4.8) k/uL Monocytes # 0.4 (0-1.0) k/uL Eosinophils # 0.1 (0-0.7) k/uL Basophils # 0.0 (0-0.2) k/uL Sodium 143 (137-145) mmol/L Potassium 3.7 (3.5-5.1) mmol/L Chloride 108 H (98-107) mmol/L Carbon Dioxide 28 (22-30) mmol/L Anion Gap 7 mmol/L BUN 14 (7-17) mg/dL Creatinine 0.85 (0.52-1.04) mg/dL Est GFR (CKD-EPI)AfAm >90 (>60 ml/min/1.73 sqM) Est GFR (CKD-EPI)NonAf 80 (>60 ml/min/1.73 sqM) Glucose 116 H (74-99) mg/dL Calcium 9.6 (8.4-10.2) mg/dL Total Bilirubin 0.4 (0.2-1.3) mg/dL AST 29 (14-36) U/L ALT 18 (4-34) U/L Alkaline Phosphatase 56 (38-126) U/L Total Protein 7.0 (6.3-8.2) g/dL Albumin 4.4 (3.5-5.0) g/dL Disposition Clinical Impression: Cramp in lower leg, Calf pain Disposition: HOME SELF-CARE Condition: Stable Instructions (If sedation given, give patient instructions): Leg Pain (ED) Additional Instructions: Please return to the Emergency Department if symptoms worsen or any other concerns. Rest ice compress elevate. Take, Motrin as needed for pain control. Avoid doing strenuous high repetition activity of the calf for several weeks. Follow-up with primary care in the next several days. Is patient prescribed a controlled substance at d/c from ED?: No Referrals: Nael Nielsen DO [Primary Care Provider] - 1-2 days Time of Disposition: 20:10
== END 2020-08-25 20:19 | disposition home or self-care (01) ==
LOC: EC 19:00
DX: R25.2 Cramp and spasm (principal); M79.661 Pain in right lower leg; M79.89 Other specified soft tissue disorders
CPT/HCPCS: 36415; 80053; 85025; 99283

== ENCOUNTER 2020-11-03 16:57 | Emergency (ER) | payer OTHER ==
[2020-11-03 17:28] VITALS: BP 124/72; PULSE 89; RESP 18; TEMP 97.9
[2020-11-03] MEDS ORDERED: LIDOCAINE 1% INJ 10MG/ML (20 ML MDV) SQ ONE (17:47)
[2020-11-03] MEDS ORDERED: KETOROLAC 15 MG/ML 1 ML VIAL IM STA (17:47)
[2020-11-03] MEDS ORDERED: DIPH,PERTUS(ACELL)TETVAC-LF 0.5 ML VIAL IM ONE (18:05)
--- NOTE | 2020-11-03 18:37 | ED ---
Animal Bite HPI - General Chief Complaint: Animal Bite Stated Complaint: Dog bite Time Seen by Provider: 11/03/20 17:39 Source: patient, RN notes reviewed Mode of arrival: ambulatory Limitations: no limitations - History of Present Illness Initial Comments: Patient is a 50-year-old female that presents to the emergency department complaining of a dog bite to the posterior left calf. She notes that the dog is her soon-to-be [id number] Rottweiler. She notes that the dog is up-to-date on shots. She notes the back of her calf is very tender and bruised. She notes she came in because she had to puncture wounds that look in my need sutures. She denied being up-to-date on her tetanus vaccine. She denied any other issues or complaints at this time. She was otherwise a well-appearing 50-year-old female in no apparent distress or pain. She denied any chest pain first breath headache nausea vomiting diarrhea constipation fever fatigue ch ills. - Related Data Home Medications Medication Instructions Recorded Confirmed Acetaminophen Tab [Tylenol Tab] 1,000 mg PO Q6HR PRN 01/23/20 01/23/20 Bismuth Subsalicylate 524 mg PO Q4H PRN 01/23/20 01/23/20 [Pepto-Bismol] Ibuprofen [Motrin Ib] 600 mg PO Q8H PRN 01/23/20 01/23/20 Simethicone [Gas-X] 125 mg PO Q6H PRN 01/23/20 01/23/20 Previous Rx's Medication Instructions Recorded Amoxicillin/Potassium Clav 1 tab PO Q12HR #20 tab 11/03/20 [Augmentin 875-125 Tablet] Allergies Allergy/AdvReac Type Severity Reaction Status Date / Time No Known Allergies Allergy Verified 11/03/20 17:23 Review of Systems ROS Statement: Those systems with pertinent positive or pertinent negative responses have been documented in the HPI. ROS Other: All systems not noted in ROS Statement are negative. Past Medical History Past Medical History: No Reported History History of Any Multi-Drug Resistant Organisms: None Reported Past Surgical History: Hysterectomy Past Psychological History: No Psychological Hx Reported Smoking Status: Never smoker Past Alcohol Use History: Occasional Past Drug Use History: None Reported General Exam Limitations: no limitations General appearance: alert, in no apparent distress Head exam: Present: atraumatic, normocephalic, normal inspection Eye exam: Present: normal appearance, PERRL, EOMI. Absent: scleral icterus, conjunctival injection, periorbital swelling Neck exam: Present: normal inspection Respiratory exam: Present: normal lung sounds bilaterally. Absent: respiratory distress, wheezes, rales, rhonchi, stridor Cardiovascular Exam: Present: regular rate, normal rhythm, normal heart sounds. Absent: systolic murmur, diastolic murmur, rubs, gallop, clicks Extremities exam: Present: normal inspection, full ROM, normal capillary refill. Absent: tenderness, pedal edema, joint swelling, calf tenderness Neurological exam: Present: alert, oriented X3 Psychiatric exam: Present: normal affect, normal mood Skin exam: Present: warm, dry, intact, normal color. Absent: rash Expanded Type of lesion: Present: laceration (Steering left Measuring approximately 2.5 cm. One small tooth puncture wound measuring approximately 0.25 cm in the same location.) Course Vital Signs 11/03/20 17:23 Temperature 97.9 F Pulse Rate 89 Respiratory 18 Rate Blood Pressure 124/72 O2 Sat by Pulse 98 Oximetry Procedures - Laceration Laceration #1 Consent Obtained: verbal consent Indication: laceration Site: lower extremity (Posterior left calf) Size (cm): 3 Description: linear Depth: simple, single layer Anesthesia Technique: local infiltration Amount (mls): 3 Pre-repair: irrigated extensively Type of Sutures: nylon Size of Sutures: 4-0 Number of Sutures: 2 Technique: simple, interrupted Patient Tolerated Procedure: well, no complications Medical Decision Making - Medical Decision Making 50-year-old female dog bite to the left posterior calf. Tetanus vaccine, lidocaine, 15 mg of Toradol ordered. Patient tolerated sutures well. Case discussed with Dr. Rankin, patient can discharge home. Disposition Clinical Impression: Dog bite Disposition: HOME SELF-CARE Condition: Stable Instructions (If sedation given, give patient instructions): Animal Bite (ED) Additional Instructions: Please return to the Emergency Department if symptoms worsen or any other concerns. Follow-up with primary care in 1-2 days. Take antibiotics as prescribed. Keep area clean and dry. Prescriptions: Amoxicillin/Potassium Clav [Augmentin 875-125 Tablet] 1 tab PO Q12HR #20 tab Is patient prescribed a controlled substance at d/c from ED?: No Referrals: Nael Nielsen DO [Primary Care Provider] - 1-2 days Time of Disposition: 18:37
== END 2020-11-03 19:12 | disposition home or self-care (01) ==
LOC: EC 16:57
DX: S81.832A Puncture wound without foreign body, left lower leg, initial encounter (principal); S81.812A Laceration without foreign body, left lower leg, initial encounter; Z23 Encounter for immunization; W54.0XXA Bitten by dog, initial encounter
CPT/HCPCS: 99283; 90471; 96372; 12002; 90715; J2001; J1885; 99284

== ENCOUNTER → 2020-12-11 | Outpatient (CLI) | payer OTHER ==
--- NOTE | 2020-12-11 18:54 | CONS ---
CONSULTATION REASON FOR CONSULTATION: Memory insufficiency, consider sleep disorder. This is a 50-year-old female patient, primary of Dr. Nielsen who was referred to me to have a sleep evaluation knowing that this patient has been having difficulties with her memory and after an extensive workup, it was suggested to her that her sleep needs to be also studied to make sure that the patient has adequate sleep quality and this needs to be also eliminated as a contributing factor to her memory issues. 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 She has been having issues with her short and long- term memory, mainly the short term. She also has been having difficulty with focus and attention and this issue has been going on for the past few years. She has lot of stressors and she has also going through a break-up with her boyfriend. 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 This is a serious issue for her knowing that especially she works for an accounting company. She is back smoking cigarettes. She is currently taking Adderall 50 mg in the morning, which has helped her with her focus and attention. She is a bit anxious. No history of depression. No history of any underlying psychiatric disorder. No substance abuse. Her neuro workup including CT scan of the brain and MRI was negative. She had extensive evaluation at [facility] and she underwent also a neuropsychiatric evaluation and the consultation was done at [facility] and will be forwarded to me for further review. In terms of her sleep, the patient goes to bed around 10 p.m., wakes up at 6 a.m. in the morning and she is able to generate sleep within 30 minutes going into bed. She will wake up tired in the morning and she continues to have trouble with paying attention memory and concentration. No reported snoring or waking up choking or gasping for air. No nighttime grinding of the teeth. No sleepwalking or sleep talking. No palpitations. No heartburn. No restlessness in lower extremities. She sleeps on her side and sometimes on her stomach. She reads in the bedroom. Does not take any naps during the day. Weight has been stable over the past one year. She is currently living alone and she does have any bed partners. She would wake up several times in the middle of night for no obvious reasons. No sleep paralysis. No hallucinations. No cataplexy. No issues with pain. No issues with caffeine intake as the patient does not drink excessive amount of coffee or alcohol. She however smokes. PAST MEDICAL HISTORY: Positive for attention deficit disorder predominantly inattentive type. PAST SURGICAL HISTORY: Hysterectomy, breast biopsy. DRUG ALLERGIES: NOT KNOWN. OUTPATIENT MEDICATION: Include Adderall 50 mg in the morning. FAMILY HISTORY: Mother had myocardial infarction. Also had rheumatoid arthritis. Father had CAD, hyperlipidemia. Grandmother had heart disease and pacemaker. SOCIAL HISTORY: The patient is a smoker. She quit and currently she is back smoking 1 pack of cigarettes a day. No history of alcoholism. No history of substance abuse. REVIEW OF SYSTEMS: Fourteen-point review of system was done. Positive findings are mentioned in history of present illness. PHYSICAL EXAMINATION: BP is 122/61, pulse 88, respirations 16, temperature 97.4 saturation 97% on room air. Height is 5 feet 8 inches. Weight is 189. BMI 29.1. [place] score is at 5. Neck size 13. GENERAL appearance: Calm, comfortable. HEAD atraumatic. Normocephalic. NECK: Supple. No JVD. No goiter or neck masses. LUNGS: Clear to auscultation. HEART: Heart sounds are regular rate and rhythm. Normal S1, S2. No S3, S4. No murmurs. ABDOMEN: Soft, nontender. No organomegaly. EXTREMITIES: No edema. No cyanosis or clubbing. NEUROLOGIC: Awake and alert. There is no focal neurological deficits. PSYCHIATRIC: Negative for anxiety or depression. IMPRESSION: 1. Impaired memory and poor concentration. Consider underlying sleep disorder. 2. Attention deficit disorder. 3. Anxiety. PLAN: We will proceed with a full night polysomnogram. This will be needed to evaluate sleep quality and see if there are any issues with her sleep contributing to her symptoms of poor attention, poor focus and poor memory. She does not have much of sleepiness during the day. No major hypersomnia. She may have a component of insomnia. A sleep study will be able to tell us if she is having good sleep efficiency, evaluate her sleep architecture and look for any causes that could potentially impair her sleep. MMODL / IJN: [id number] /
== END | disposition home or self-care (01) ==
LOC: SLEEP 15:44
PROVIDERS: ATTEND Internal Medicine Critical Care Medicine
DX: F98.8 Other specified behavioral and emotional disorders with onset usually occurring in childhood and adolescence (principal); F41.9 Anxiety disorder, unspecified
CPT/HCPCS: 99211

== ENCOUNTER 2021-02-11 09:50 | Emergency (ER) | payer OTHER ==
[2021-02-11 10:02] VITALS: BP 163/83; PULSE 87; RESP 18; TEMP 98.1
[2021-02-11] MEDS ORDERED: KETOROLAC 30 MG/ML 1 ML VIAL IM STA (11:13)
--- NOTE | 2021-02-11 11:26 | ED ---
General Adult HPI - General Chief complaint: Extremity Injury, Lower Stated complaint: rt sided hip pain Time Seen by Provider: 02/11/21 10:37 Source: patient Mode of arrival: ambulatory Limitations: no limitations - History of Present Illness Initial comments: 50-year-old female presents to the emergency room for a chief complaint of right hip pain. Patient states that 2 days ago she was taking close out of a laundry basket and turning to put them in a washing machine when she hurt her right hip. States that she felt like she had a pop in the right hip. She has had pain since then. Than as it radiates down to the anterior aspect of her right thigh. Patient states the pain as physician on hurts with certain movements such as externally rotating her right leg or abducting her hip. States it feels better laying in certain positions like on her abdomen. Patient has been taking Motrin.Patient has no other complaints at this time including shortness of breath, chest pain, abdominal pain, nausea or vomiting, headache, or visual changes. - Related Data Home Medications Medication Instructions Recorded Confirmed Acetaminophen Tab [Tylenol Tab] 1,000 mg PO Q6HR PRN 01/23/20 01/23/20 Bismuth Subsalicylate 524 mg PO Q4H PRN 01/23/20 01/23/20 [Pepto-Bismol] Ibuprofen [Motrin Ib] 600 mg PO Q8H PRN 01/23/20 01/23/20 Simethicone [Gas-X] 125 mg PO Q6H PRN 01/23/20 01/23/20 Previous Rx's Medication Instructions Recorded Amoxicillin/Potassium Clav 1 tab PO Q12HR #20 tab 11/03/20 [Augmentin 875-125 Tablet] Allergies Allergy/AdvReac Type Severity Reaction Status Date / Time No Known Allergies Allergy Verified 02/11/21 10:02 Review of Systems ROS Statement: Those systems with pertinent positive or pertinent negative responses have been documented in the HPI. ROS Other: All systems not noted in ROS Statement are negative. Past Medical History Past Medical History: No Reported History History of Any Multi-Drug Resistant Organisms: None Reported Past Surgical History: Hysterectomy Past Psychological History: No Psychological Hx Reported Smoking Status: Never smoker Past Alcohol Use History: Occasional Past Drug Use History: None Reported General Exam Limitations: no limitations General appearance: alert, in no apparent distress Head exam: Present: atraumatic Eye exam: Present: normal appearance, PERRL, EOMI. Absent: scleral icterus, conjunctival injection ENT exam: Present: normal exam, mucous membranes moist Neck exam: Present: normal inspection, full ROM. Absent: tenderness Respiratory exam: Present: normal lung sounds bilaterally. Absent: respiratory distress, wheezes Cardiovascular Exam: Present: regular rate, normal rhythm, normal heart sounds Extremities exam: Present: normal capillary refill (cap refill less than 2 seconds right lower extremity). Absent: full ROM (Full flexion of the right hip with full extension. However patient does have pain with external rotation and abduction of the right hip.), tenderness Course Vital Signs 02/11/21 09:58 Temperature 98.1 F Pulse Rate 87 Respiratory 18 Rate Blood Pressure 163/83 O2 Sat by Pulse 98 Oximetry Medical Decision Making - Medical Decision Making Vitals are stable. HPI and physical exam as documented. X-ray of the right hip and pelvis shows no acute fracture or dislocation. Patient was given Toradol. Patient is ambulatory. Patient could benefit from orthopedic follow-up and possible MRI. Patient will return here for any worsening symptoms. Disposition Clinical Impression: Hip pain, right Disposition: HOME SELF-CARE Condition: Good Instructions (If sedation given, give patient instructions): Hip Pain (ED) Additional Instructions: Please follow up with primary care and orthopedics in 1-2 days. Return to the ER for any worsening symptoms. Is patient prescribed a controlled substance at d/c from ED?: No Referrals: Nael Nielsen DO [Primary Care Provider] - 1-2 days Jamal Modi MD [Medical Doctor] - 1-2 days Time of Disposition: 12:06
--- NOTE | 2021-02-11 11:54 | XR ---
EXAMINATION TYPE: XR Hip RT and AP Pelvis DATE OF EXAM: 02/11/2021 CLINICAL HISTORY: Pelvic and right hip pain. TECHNIQUE: A single AP view of the pelvis is obtained. Two views of the right hip are obtained. COMPARISON: None. FINDINGS: There is no acute fracture/dislocation evident in the pelvis. The hip and sacroiliac joints appear s ymmetric and unremarkable. The overlying soft tissue appears unremarkable.Two views of right hip benedicto w no acute fracture or dislocation. No focal lytic or sclerotic lesion seen in the proximal right fe mur. The overlying soft tissue is unremarkable. IMPRESSION: There is no acute fracture or dislocation in the pelvis or right hip.
[2021-02-11] MEDS ORDERED: ONDANSETRON ODT 4 MG TAB PO STA (12:19)
[2021-02-11] MEDS ORDERED: MORPHINE SULFATE 4 MG/ML SYRINGE IM STA (12:19)
[2021-02-11] MEDS ORDERED: ACET/COD 300 MG/30 MG STARTER PACK 6 TAB BTL PO STA (12:19)
== END 2021-02-11 12:35 | disposition home or self-care (01) ==
LOC: EC 09:50
DX: M25.551 Pain in right hip (principal)
CPT/HCPCS: 73502; 99283; 96372; J2270; J1885

== ENCOUNTER → 2021-12-05 | Outpatient (CLI) | payer OTHER ==
--- NOTE | 2021-12-05 14:31 | P.GSHP ---
History of Present Illness H&P Date: 12/05/21 Chief Complaint: intraductal papilloma right breast Elnia is a 51 year old whtie female seen in consultation for Dr. Nielsen regarding a biopsy proven intraductal papilloma of the right breast. [place] [address]. This led to additional mammogram and ultrasound evaluation of the right breast. Nothing specific was seen on the mammogram, however on the ultrasound the lesion was seen which was recommended for biopsy. At the 9 o'clock position there was a 1.4 x 1 cm oval mass for which biopsy was recommended. This was performed on 9821. Pathology revealed an intraductal papilloma. The patient is soft does not feel any lumps masses or not his of concern in either breast. She did have a left breast biopsy in the past which was benign. She does not had any recent trauma or infection or breast. caffiene: 1-2 cups coffee/day nicotine: none; stopped 12 years ago; used to smoke 1/PPD chocolate: daily BCP: stopped at a hysterectomy in 2006; use for about 10 years Family History; no cancer Hormonal History; menarche: 12 A2, breast fed: yes, age at first : 18 menopuase: hysterectomy at 35, left ovaries, done for fibroids Surgical History: Breast biopsy left breast Hysterectomy Medical [facility] diverticulitis Social History: nicotine: former smoker alcohol: none drugs: none - Constitutional Constitutional: Denies chills, Denies fever - EENT Eyes: denies blurred vision, denies pain Ears: left: decreased hearing, deny: tinnitus Ears, nose, mouth and throat: Reports headache, Denies sore throat - Breasts Breasts: bilateral: as per HPI - Cardiovascular Cardiovascular: Denies chest pain, Denies shortness of breath - Respiratory Respiratory: Denies cough, Denies 7 - Gastrointestinal Gastrointestinal: Denies abdominal pain, Denies diarrhea, Denies nausea, Denies vomiting - Genitourinary (Female) Genitourinary: Denies dysuria, Denies hematuria - Menstruation Menstruation: Reports post hysterectomy - Musculoskeletal Musculoskeletal: Denies myalgias - Integumentary Integumentary: Denies pruritus, Denies rash - Neurological Neurological: Denies numbness, Denies weakness - Psychiatric Psychiatric: Denies anxiety, Denies depression - Endocrine Endocrine: Reports fatigue, Denies weight change - Hematologic/Lymphatic Comment: none - Allergic/Immunologic Allergic/Immunologic: Reports as per HPI Past Medical History Past Medical History: No Reported History History of Any Multi-Drug Resistant Organisms: None Reported Past Surgical History: Hysterectomy Past Psychological History: No Psychological Hx Reported Smoking Status: Never smoker Past Alcohol Use History: Occasional Past Drug Use History: None Reported Medications and Allergies Home Medications Medication Instructions Recorded Confirmed Type Acetaminophen Tab [Tylenol Tab] 1,000 mg PO Q6HR PRN 01/23/20 01/23/20 History Bismuth Subsalicylate 524 mg PO Q4H PRN 01/23/20 01/23/20 History [Pepto-Bismol] Ibuprofen [Motrin Ib] 600 mg PO Q8H PRN 01/23/20 01/23/20 History Simethicone [Gas-X] 125 mg PO Q6H PRN 01/23/20 01/23/20 History Amoxicillin/Potassium Clav 1 tab PO Q12HR #20 tab 11/03/20 Rx [Augmentin 875-125 Tablet] Allergies Allergy/AdvReac Type Severity Reaction Status Date / Time No Known Allergies Allergy Verified 02/11/21 10:02 Surgical - Exam - General no distress - Eyes normal ocular movement - Neck trachea midline - Respiratory normal respiratory effort, clear to auscultation - Cardiovascular Rhythm: regular Heart Sounds: normal: S1, S2 - Abdomen Abdomen: soft, non tender, no guarding, no rigid, no rebound - Integumentary normal turgor - Neurologic no disoriented, no combative - Musculoskeletal normal gait, normal posture - Psychiatric oriented to time, oriented to person, oriented to place, speech is normal, memory intact Breast Exam: BRA: 38B inspection: tattoo right breast, bilateral grade 2 ptosis; right breast slightly larger than the left breast Patient: Right breast: Multi-positional exam hematoma at site of core biopsy approximately 4 cm x 2 cm in size, otherwise no dominant masses or nodules of concern Right axilla: No adenopathy of concern Left breast: Multi-positional exam fibrocystic changes, well-healed scar from prior biopsy, no dominant masses or nodules of concern Left axilla: No adenopathy of concern Results Mammogram and ultrasound results reviewed as well as pathology from right breast ultrasound-guided core biopsy/pathology intraductal papilloma Assessment and Plan Assessment: Impression: Intraductal papilloma right breast Hematoma at core biopsy site Fibrocystic breast changes Plan: Needle localization resection intraductal papilloma right breast, possible onco- plastic tissue transfer Await resolution of hematoma will follow up with patient in 6 weeks CC: Dr. Nielsen
[2021-12-05 14:32] VITALS: BP 141/61; PULSE 80; RESP 17; TEMP 97.8
== END ==
LOC: WWCWWP 13:49
PROVIDERS: ATTEND Surgery
DX: R92.8 Other abnormal and inconclusive findings on diagnostic imaging of breast (principal)

== ENCOUNTER → 2022-01-24 | Outpatient (CLI) | payer OTHER ==
[2022-01-24 16:06] VITALS: BP 143/83; PULSE 87; RESP 17; TEMP 98.2
--- NOTE | 2022-01-24 16:18 | P.PN ---
Subjective Progress Note Date: 01/24/22 Principal diagnosis: intraductal papilloma right breast Chief Complaint: intraductal papilloma right breast Elina is a 51 year old whtie female seen in consultation for Dr. Nielsen regarding a biopsy proven intraductal papilloma of the right breast. [place] [address]. This led to additional mammogram and ultrasound evaluation of the right breast. Nothing specific was seen on the mammogram, however on the ultrasound the lesion was seen which was recommended for biopsy. At the 9 o'clock position there was a 1.4 x 1 cm oval mass for which biopsy was recommended. This was performed on 9821. Pathology revealed an intraductal papilloma. The patient is soft does not feel any lumps masses or not his of concern in either breast. She did have a left breast biopsy in the past which was benign. She does not had any recent trauma or infection or breast. caffiene: 1-2 cups coffee/day nicotine: none; stopped 12 years ago; used to smoke 1/PPD chocolate: daily BCP: stopped at a hysterectomy in 2006; use for about 10 years Family History; no cancer Hormonal History; menarche: 12 A2, breast fed: yes, age at first : 18 menopuase: hysterectomy at 35, left ovaries, done for fibroids Surgical History: Breast biopsy left breast Hysterectomy [facility] diverticulitis Social History: nicotine: former smoker alcohol: none drugs: none - Constitutional Constitutional: Denies chills, Denies fever - EENT Eyes: denies blurred vision, denies pain Ears: left: decreased hearing, deny: tinnitus Ears, nose, mouth and throat: Reports headache, Denies sore throat - Breasts Breasts: bilateral: as per HPI - Cardiovascular Cardiovascular: Denies chest pain, Denies shortness of breath - Respiratory Respiratory: Denies cough, Denies 7 - Gastrointestinal Gastrointestinal: Denies abdominal pain, Denies diarrhea, Denies nausea, Denies vomiting - Genitourinary (Female) Genitourinary: Denies dysuria, Denies hematuria - Menstruation Menstruation: Reports post hysterectomy - Musculoskeletal Musculoskeletal: Denies myalgias - Integumentary Integumentary: Denies pruritus, Denies rash - Neurological Neurological: Denies numbness, Denies weakness - Psychiatric Psychiatric: Denies anxiety, Denies depression - Endocrine Endocrine: Reports fatigue, Denies weight change - Hematologic/Lymphatic Comment: none - Allergic/Immunologic Allergic/Immunologic: Reports as per HPI Past Medical History Past Medical History: No Reported History History of Any Multi-Drug Resistant Organisms: None Reported Past Surgical History: Hysterectomy Past Psychological History: No Psychological Hx Reported Smoking Status: Never smoker Past Alcohol Use History: Occasional Past Drug Use History: None Reported Medications and Allergies Home Medications Medication Instructions Recorded Confirmed Type Acetaminophen Tab [Tylenol Tab] 1,000 mg PO Q6HR PRN 01/23/20 01/23/20 History Bismuth Subsalicylate 524 mg PO Q4H PRN 01/23/20 01/23/20 History [Pepto-Bismol] Ibuprofen [Motrin Ib] 600 mg PO Q8H PRN 01/23/20 01/23/20 History Simethicone [Gas-X] 125 mg PO Q6H PRN 01/23/20 01/23/20 History Amoxicillin/Potassium Clav 1 tab PO Q12HR #20 tab 11/03/20 Rx [Augmentin 875-125 Tablet] Allergies Allergy/AdvReac Type Severity Reaction Status Date / Time No Known Allergies Allergy Verified 02/11/21 10:02 Objective - Vital Signs Vital signs: Vital Signs Temp 98.2 F 01/24/22 16:03 Pulse 87 01/24/22 16:03 Resp 17 01/24/22 16:03 BP 143/83 01/24/22 16:03 Pulse Ox 100 01/24/22 16:03 FiO2 Intake & Output 01/23/22 01/24/22 01/24/22 18:59 06:59 18:59 Weight 79.379 kg - Constitutional General appearance: Present: cooperative - EENT Eyes: Present: EOMI ENT: Present: hearing grossly normal - Neck Neck: Present: normal ROM - Respiratory Respiratory: bilateral: CTA - Cardiovascular Heart sounds: normal: S1, S2 - Gastrointestinal General gastrointestinal: Present: soft - Integumentary Integumentary: Present: normal turgor - Musculoskeletal Musculoskeletal: Present: gait normal - Psychiatric Psychiatric: Present: A&O x's 3, appropriate affect, intact judgment & insight - Additional findings Additional findings: Breast Exam: BRA: 38B inspection: tattoo right breast, bilateral grade 2 ptosis; right breast slightly larger than the left breast Patient: Right breast: Multi-positional exam hematoma at site of core biopsy approximately 4 cm x 2 cm in size, otherwise no dominant masses or nodules of concern Right axilla: No adenopathy of concern Left breast: Multi-positional exam fibrocystic changes, well-healed scar from prior biopsy, no dominant masses or nodules of concern Left axilla: No adenopathy of concern Assessment and Plan Assessment: Impression: intraductal papilloma Plan: Needle localization resection of intraductal papilloma right breast 9 o'clock position, the patient stated this be done via a mastopexy incision if possible. This most likely be a donut mastopexy. She is already asymmetric with the right nipple areolar complex being slightly lower than the left side. Probable optical plastic tissue transfer. CC: DR. Nielsen
== END | disposition home or self-care (01) ==
LOC: WWCWWP 15:08
PROVIDERS: ATTEND Surgery
DX: Z53.9 Procedure and treatment not carried out, unspecified reason (principal)

== ENCOUNTER 2022-02-18 12:20 | Day surgery (SDC) | payer OTHER ==
[~2022-02-18 12:20] MED LIST: HEPARIN SODIUM,PORCINE/PF 5,000 UNIT/0.5 ML SYRINGE SQ PRN; Pre Op ABX Message 1 EACH MISC MISCELLANE ONE
[2022-02-18] MEDS ORDERED: ONDANSETRON 4 MG/2 ML VIAL ONE (12:56)
[2022-02-18] MEDS ORDERED: ALPRAZolam 0.5 MG TAB ONE (12:57)
[2022-02-18] MEDS ORDERED: ALPRAZolam 0.5 MG TAB PO ONE (12:58)
[2022-02-18] MEDS ORDERED: DEXAMETHASONE SOD PHOSPHATE 4 MG/ML 1 ML VIAL IVP ONE (12:59)
[2022-02-18] MEDS ORDERED: ONDANSETRON 4 MG/2 ML VIAL IVP ONE (12:59)
[2022-02-18] MEDS ORDERED: LACTATED RINGERS 1,000 ML IV ONE (13:02)
[2022-02-18 13:38] VITALS: RESP 16
[2022-02-18] MEDS ORDERED: LIDOCAINE 1% INJ 10MG/ML (30 ML VIAL-PF) SQ ONE (13:45)
[2022-02-18] MEDS ORDERED: KETOROLAC 15 MG/ML 1 ML VIAL ONE (15:57)
[2022-02-18] MEDS ORDERED: LIDOCAINE 2% INJ 20 MG/ML (2 ML VIAL) ONE (15:57)
[2022-02-18] MEDS ORDERED: KETAMINE 10 MG/ML 20 ML VIAL ONE (15:57)
[2022-02-18] MEDS ORDERED: PROPOFOL 10 MG/ML 20 ML VIAL IV ONE (15:57)
[2022-02-18] MEDS ORDERED: MIDAZOLAM 2 MG/2 ML VIAL ONE (15:57)
[2022-02-18] MEDS ORDERED: fentaNYL (PF) 50 MCG/ML 2 ML AMP ONE (15:57)
--- NOTE | 2022-02-18 16:41 | P.PCN ---
Date of Procedure: 02/18/22 Preoperative Diagnosis: Intraductal papilloma right breast on core biopsy Postoperative Diagnosis: Same Procedure(s) Performed: needle localization excisional biopsy Anesthesia: GETA Surgeon: Adali Blakely Estimated Blood Loss (ml): 5 IV fluids (ml): 400 Pathology: other (Breast tissue) Condition: stable Disposition: same day Indications for Procedure: core biopsy positive for intraductal papilloma right breast Operative Findings: Dense breast tissue Description of Procedure: The patient was taken to the operating room and following induction of anesthesia the right breast was prepped and draped in a sterile fashion. An incision was made and carried down to the shaft of the needle. Surrounding tissue was excised. The specimen was painted for orientation and a radiograph was obtained. The wound was examined for hemostasis. It was well irrigated. The deep tissues were closed using 3-0 Vicryl suture. Titanium clips were placed prior to this. The skin was closed using a 3-0 Vicryl subcutaneous suture and a 4-0 Monocryl subcuticular suture. The patient tolerated the procedure in stable condition. All instrument and sponge counts were correct at the end of the case.
--- NOTE | 2022-02-18 16:51 | P.DS ---
Providers Attending physician: Adali Blakely Primary care physician: Nael Nielsen Plan - Discharge Summary Discharge Rx Participant: No New Discharge Prescriptions: No Action Ibuprofen [Motrin Ib] 600 mg PO Q8H PRN PRN Reason: Pain Or Fever > 100.5 Multivitamin [Multivitamins Adult Gummies] 1 tab PO DAILY Cider Vinegar [Apple Cider Vinegar] 1 tab PO DAILY Cholecalciferol [Vitamin D3 (25 Mcg = 1000 Iu)] 25 mcg PO DAILY Biotin [Biotin Disolve] 5,000 mcg PO DAILY Dextroamphetamine/Amphetamine [Adderall] 15 mg PO DIRECTED PRN PRN Reason: See Comments Dextroamphetamine/Amphetamine [Adderall Xr 10 mg Capsule] 15 mg PO DAILY Discharge Medication List Ibuprofen [Motrin Ib] 600 mg PO Q8H PRN 01/23/20 [History] Biotin [Biotin Disolve] 5,000 mcg PO DAILY 12/05/21 [History] Cholecalciferol [Vitamin D3 (25 Mcg = 1000 Iu)] 25 mcg PO DAILY 12/05/21 [History] Cider Vinegar [Apple Cider Vinegar] 1 tab PO DAILY 12/05/21 [History] Dextroamphetamine/Amphetamine [Adderall Xr 10 mg Capsule] 15 mg PO DAILY 12/05/21 [History] Dextroamphetamine/Amphetamine [Adderall] 15 mg PO DIRECTED PRN 12/05/21 [History] Multivitamin [Multivitamins Adult Gummies] 1 tab PO DAILY 12/05/21 [History] Follow up Appointment(s)/Referral(s): Adali Blakely MD [STAFF PHYSICIAN] - 02/28/22 9:40 am Activity/Diet/Wound Care/Special Instructions: dp not drive for 24 hours after discharge wear bra at all times may shower after 48 hours Discharge Disposition: HOME SELF-CARE
[2022-02-18 17:06] VITALS: TEMP 96.8
[2022-02-18] MEDS ORDERED: HYDROcodone/APAP 5-325MG 1 EACH TAB PO ONE (17:50)
[2022-02-18] MEDS ORDERED: HYDROcodone/APAP 5-325MG 1 EACH TAB ONE (17:50)
[2022-02-18 17:54] VITALS: BP 135/86; PULSE 64
--- NOTE | 2022-02-25 10:26 | MM ---
Risk Values: Keri 5 year model risk: 0.7%. NCI Lifetime model risk: 5.9%. Pathology Description: Location: lower outer quadrant, posterior. Approach: Lateral to Medial Needle Type: 5 cm Kopan Informed consent was obtained and all the patient's questions were answered. The question was localized lesion mammographically. The standard sterile technique was utilized, as well as appropriate local anesthesia with 1% Lidocaine and bicarbonate. Localization needle followed by placement of a guidewire was performed under mammographic guidance. Verification images demonstrate appropriate deployment of the guidewire. The patient tolerated the procedure well and left the department in stable condition. Specimen radiograph demonstrates the clip in question to reside within the specimen. IMPRESSION: Successful needle localization and open biopsy left breast with pathology results pending. Pathology Results: Result: High risk, Flat epithelial atypia. RIGHT BREAST, LUMPECTOMY: Nodular biopsy site change with fat necrosis, remote hemorrhage and focal small duct papilloma with usual ductal hyperplasia. Focally favored flat epithelial atypia seen. Background breast with microcalcification and proliferative fibrocystic change with columnar cell change, moderate to florid focal usual ductal hyperplasia and sclerosing adenosis. Sections examined negative for in situ or invasive carcinoma. Overall Assessment: High risk Management: Diagnostic Mammogram of the right breast in 6 months. Electronically signed and approved by: Dylan Shipman M.D. Radiologis
== END 2022-02-18 18:22 | disposition home or self-care (01) ==
LOC: OR 12:20
PROVIDERS: ATTEND Surgery
DX: D24.1 Benign neoplasm of right breast (principal); N60.21 Fibroadenosis of right breast; R92.0 Mammographic microcalcification found on diagnostic imaging of breast
CPT/HCPCS: 88307; 76098; 19281; C1819; J2250; J1100; J2405; J2001 ×2; J3010; J1885; J2704; J1644

== ENCOUNTER → 2022-02-28 | Outpatient (CLI) | payer OTHER ==
[2022-02-28 08:29] VITALS: BP 154/88; PULSE 73; RESP 17; TEMP 97.9
--- NOTE | 2022-02-28 08:36 | P.PN ---
Progress Note - Text Progress Note Date: 02/28/22 The patient on underwent a needle localization and excision of an intraductal papilloma in the operating room. Pathology was benign and concordant, and the area of concern was removed. The patient tolerated the procedure without difficulty. Keri Risk evaluation: 5 year: 1.9% lifetime: 16.2% We have discussed chemoprevention and the patient has declined at this time. Physical examination: Lungs: Clear Heart: Regular rate and rhythm Incision: Clean and dry Impression: Status post needle localization excision of right breast lesion benign pathology/benign concordant Plan: Repeat right breast mammogram in 6 months with physician exam at that time CC: Dr. Nielsen
== END ==
LOC: WWCWWP 08:22
PROVIDERS: ATTEND Surgery
DX: D24.1 Benign neoplasm of right breast (principal)

== ENCOUNTER → 2022-09-19 | Outpatient (CLI) | payer BC ==
--- NOTE | 2022-09-19 13:23 | MM ---
Reason for Exam: Additional evaluation requested from prior study. Last screening mammogram was performed 11 month(s) ago. Patient History: Menarche at age 12. First Full-Term at age 18. Hysterectomy at age 35. Perimenopausal. Patient has history of breast feeding. 11/14/2021, Ultrasound-Guided Core Biopsy on the Right side. 02/18/2022, Lumpectomy on the Right side. 02/18/2022, High risk MG pre op needle loc RT on the right side. Risk Values: Keri 5 year model risk: 1.1%. NCI Lifetime model risk: 9.3%. Prior Study Comparison: 10/18/2021 Bilateral Screening Mammogram, [facility]. 10/31/2021 Right Diagnostic Mammogram, [facility]. Tissue Density: Right: The breast tissue is heterogeneously dense. This may lower the sensitivity of mammography. Findings: Analyzed By CAD. Right breast is stable. Postbiopsy surgical clips are present. Few scattered calcifications are present. No suspicious groups of microcalcifications, spiculated or lobular masses, architectural distortion or other secondary signs of malignancy are mammographically apparent. Overall Assessment: Benign, BI-RAD 2 Management: Screening Mammogram of both breasts in 6 months. A negative mammogram report should not preclude additional follow up of suspicious palpable abnormalities. Patient should continue monthly self breast exam. A clinical breast exam by your physician is recommended on an annual basis and results should be correlated with mammographic findings. Electronically signed and approved by: Nael Chavez D.O. Radiologis
== END | disposition home or self-care (01) ==
LOC: RADMAMWWP 12:50
PROVIDERS: ATTEND Surgery
DX: R92.8 Other abnormal and inconclusive findings on diagnostic imaging of breast (principal)
CPT/HCPCS: 77061; 77065

== ENCOUNTER → 2022-09-19 | Outpatient (CLI) | payer BC ==
[2022-09-19 13:35] VITALS: BP 144/84; PULSE 78; RESP 13; TEMP 98.4
--- NOTE | 2022-09-19 14:34 | P.PN ---
Subjective Progress Note Date: 09/19/22 intraductal papilloma right breast Elina is a 51 year old whtie female seen in consultation for Dr. Nielsen regarding a biopsy proven intraductal papilloma of the right breast. She underwent a bilateral screening mammogram in . This led to additional mammogram and ultrasound evaluation of the right breast. Nothing specific was seen on the mammogram, however on the ultrasound the lesion was seen which was recommended for biopsy. At the 9 o'clock position there was a 1.4 x 1 cm oval mass for which biopsy was recommended. This was performed on 9821. Pathology revealed an intraductal papilloma. The patient does not feel any lumps masses or nodules of concern in either breast. She did have a left breast biopsy in the past which was benign. She does not had any recent trauma or infection or breast. On 02-18-22 she had a needle localozation and lumpectomy, of the area of the papilloma this revealed flat epithleal atypia right breast mammogram 09-19-22 BIRAD 2 caffiene: 1-2 cups coffee/day nicotine: none; stopped 12 years ago; used to smoke 1/PPD chocolate: daily BCP: stopped at a hysterectomy in 2006; use for about 10 years Family History; no cancer Hormonal History; menarche: 12 A2, breast fed: yes, age at first : 18 menopuase: hysterectomy at 35, left ovaries, done for fibroids Surgical History: Breast biopsy bilateral Hysterectomy Medical [facility] issues diverticulitis Social History: nicotine: former smoker alcohol: none drugs: none - Constitutional Constitutional: Denies chills, Denies fever - EENT Eyes: denies blurred vision, denies pain Ears: left: decreased hearing, deny: tinnitus Ears, nose, mouth and throat: Reports headache, Denies sore throat - Breasts Breasts: bilateral: as per HPI - Cardiovascular Cardiovascular: Denies chest pain, Denies shortness of breath - Respiratory Respiratory: Denies cough - Gastrointestinal Gastrointestinal: Denies abdominal pain, Denies diarrhea, Denies nausea, Denies vomiting - Genitourinary (Female) Genitourinary: Denies dysuria, Denies hematuria - Menstruation Menstruation: Reports post hysterectomy - Musculoskeletal Musculoskeletal: Denies myalgias - Integumentary Integumentary: Denies pruritus, Denies rash - Neurological Neurological: Denies numbness, Denies weakness - Psychiatric Psychiatric: Denies anxiety, Denies depression - Endocrine Endocrine: Reports fatigue, Denies weight change - Hematologic/Lymphatic Comment: none - Allergic/Immunologic Allergic/Immunologic: Reports as per HPI Past Medical History Past Medical History: No Reported History History of Any Multi-Drug Resistant Organisms: None Reported Past Surgical History: Hysterectomy Past Psychological History: No Psychological Hx Reported Smoking Status: Never smoker Past Alcohol Use History: Occasional Past Drug Use History: None Reported Medications and Allergies Home Medications Medication Instructions Recorded Confirmed Type Acetaminophen Tab [Tylenol Tab] 1,000 mg PO Q6HR PRN 01/23/20 01/23/20 History Bismuth Subsalicylate 524 mg PO Q4H PRN 01/23/20 01/23/20 History [Pepto-Bismol] Ibuprofen [Motrin Ib] 600 mg PO Q8H PRN 01/23/20 01/23/20 History Simethicone [Gas-X] 125 mg PO Q6H PRN 01/23/20 01/23/20 History Amoxicillin/Potassium Clav 1 tab PO Q12HR #20 tab 11/03/20 Rx [Augmentin 875-125 Tablet] Allergies Allergy/AdvReac Type Severity Reaction Status Date / Time No Known Allergies Allergy Verified 02/11/21 10:02 Objective - Vital Signs Vital signs: Vital Signs Temp 98.4 F 09/19/22 13:30 Pulse 78 09/19/22 13:30 Resp 13 09/19/22 13:30 BP 144/84 09/19/22 13:30 Pulse Ox 99 09/19/22 13:30 FiO2 Intake & Output 09/18/22 09/19/22 09/19/22 18:59 06:59 18:59 Weight 83.915 kg - Constitutional General appearance: Present: cooperative - EENT Eyes: Present: EOMI ENT: Present: hearing grossly normal - Neck Neck: Present: normal ROM - Respiratory Respiratory: bilateral: CTA - Cardiovascular Rhythm: regular Heart sounds: normal: S1, S2 - Gastrointestinal General gastrointestinal: Present: soft - Integumentary Integumentary: Present: normal turgor - Musculoskeletal Musculoskeletal: Present: gait normal - Psychiatric Psychiatric: Present: A&O x's 3, appropriate affect, intact judgment & insight - Additional findings Additional findings: Breast Exam: BRA: 38B inspection: tattoo right breast, bilateral grade 2 ptosis; right breast slightly larger than the left breast Patient: Right breast: Multi-positional exam no dominant masses or nodules of concern, well-healed scar from prior surgery fibrocystic changes Right axilla: No adenopathy of concern Left breast: Multi-positional exam fibrocystic changes, well-healed scar from prior biopsy, no dominant masses or nodules of concern Left axilla: No adenopathy of concern Assessment and Plan Assessment: Impression: Right breast mammogram [id number] BIRAD 2 Patient will be due for left breast mammogram next month Fibrocystic breast changes Plan: Left breast mammogram November with physician exam at that time At that point we will go back to bilateral mammogram in a year CC: Dr. Nielsen
== END ==
LOC: WWCWWP 12:53
PROVIDERS: ATTEND Surgery
DX: R92.8 Other abnormal and inconclusive findings on diagnostic imaging of breast (principal); N60.11 Diffuse cystic mastopathy of right breast; D24.1 Benign neoplasm of right breast; Z87.891 Personal history of nicotine dependence

== ENCOUNTER → 2022-11-21 | Outpatient (CLI) | payer BC ==
[2022-11-21 09:08] VITALS: BP 140/72; PULSE 84; RESP 16; TEMP 98.1
--- NOTE | 2022-11-21 09:21 | P.PN ---
Subjective Progress Note Date: 11/21/22 Principal diagnosis: intraductal papilloma right breast 09/19/22 intraductal papilloma right breast Elina is a 51 year old white female seen in consultation for Dr. Nielsen regarding a biopsy proven intraductal papilloma of the right breast. She underwent a bilateral screening mammogram in . This led to additional mammogram and ultrasound evaluation of the right breast. Nothing specific was seen on the mammogram, however on the ultrasound the lesion was seen which was recommended for biopsy. At the 9 o'clock position there was a 1.4 x 1 cm oval mass for which biopsy was recommended. This was performed on 9821. Pathology revealed an intraductal papilloma. The patient does not feel any lumps masses or nodules of concern in either breast. She did have a left breast biopsy in the past which was benign. She does not had any recent trauma or infection or breast. On 02-18-22 she had a needle localozation and lumpectomy, of the area of the papilloma this revealed flat epithleal atypia right breast mammogram 09-19-22 BIRAD 2 11-21-22 Left breast mammogram 9822 BIRAD 2 At this time the patient does not complain of any new lumps masses or nodules of concern in either breast The patient does complain of some asymmetry of the nipple areolar location being slightly lower on the right than on the left, she also has some contour defect concerns of the upper mid breast on the left related to a prior breast biopsy Keri 5 year Risk 1.1% lifetime risk: 9.3% caffiene: 1-2 cups coffee/day nicotine: none; stopped 12 years ago; used to smoke 1/PPD chocolate: daily BCP: stopped at a hysterectomy in 2006; use for about 10 years Family History; no cancer Hormonal History; menarche: 12 A2, breast fed: yes, age at first : 18 menopuase: hysterectomy at 35, left ovaries, done for fibroids Surgical History: Breast biopsy bilateral Hysterectomy Medical [facility] diverticulitis Social History: nicotine: former smoker alcohol: none drugs: none - Constitutional Constitutional: Denies chills, Denies fever - EENT Eyes: denies blurred vision, denies pain Ears: left: decreased hearing, deny: tinnitus Ears, nose, mouth and throat: Reports headache, Denies sore throat - Breasts Breasts: bilateral: as per HPI - Cardiovascular Cardiovascular: Denies chest pain, Denies shortness of breath - Respiratory Respiratory: Denies cough - Gastrointestinal Gastrointestinal: Denies abdominal pain, Denies diarrhea, Denies nausea, Denies vomiting - Genitourinary (Female) Genitourinary: Denies dysuria, Denies hematuria - Menstruation Menstruation: Reports post hysterectomy - Musculoskeletal Musculoskeletal: Denies myalgias - Integumentary Integumentary: Denies pruritus, Denies rash - Neurological Neurological: Denies numbness, Denies weakness - Psychiatric Psychiatric: Denies anxiety, Denies depression - Endocrine Endocrine: Reports fatigue, Denies weight change - Hematologic/Lymphatic Comment: none - Allergic/Immunologic Allergic/Immunologic: Reports as per HPI Past Medical History Past Medical History: No Reported History History of Any Multi-Drug Resistant Organisms: None Reported Past Surgical History: Hysterectomy Past Psychological History: No Psychological Hx Reported Smoking Status: Never smoker Past Alcohol Use History: Occasional Past Drug Use History: None Reported Medications and Allergies Home Medications Medication Instructions Recorded Confirmed Type Acetaminophen Tab [Tylenol Tab] 1,000 mg PO Q6HR PRN 01/23/20 01/23/20 History Bismuth Subsalicylate 524 mg PO Q4H PRN 01/23/20 01/23/20 History [Pepto-Bismol] Ibuprofen [Motrin Ib] 600 mg PO Q8H PRN 01/23/20 01/23/20 History Simethicone [Gas-X] 125 mg PO Q6H PRN 01/23/20 01/23/20 History Amoxicillin/Potassium Clav 1 tab PO Q12HR #20 tab 11/03/20 Rx [Augmentin 875-125 Tablet] Allergies Allergy/AdvReac Type Severity Reaction Status Date / Time No Known Allergies Allergy Verified 02/11/21 10:02 Objective - Vital Signs Vital signs: Intake & Output 11/20/22 11/21/22 11/21/22 18:59 06:59 18:59 Weight 90.718 kg - Constitutional General appearance: Present: cooperative - EENT Eyes: Present: EOMI ENT: Present: hearing grossly normal - Neck Neck: Present: normal ROM - Respiratory Respiratory: bilateral: CTA - Cardiovascular Heart sounds: normal: S1, S2 - Integumentary Integumentary: Present: normal turgor - Musculoskeletal Musculoskeletal: Present: gait normal - Psychiatric Psychiatric: Present: A&O x's 3, appropriate affect, intact judgment & insight - Additional findings Additional findings: Breast Exam: BRA: 38B inspection: tattoo right breast, bilateral grade 2 ptosis; right breast slightly larger than the left breast; slight the greater ptosis on the right than on the left Patient: Right breast: Multi-positional exam no dominant masses or nodules of concern, well-healed scar from prior surgery fibrocystic changes Right axilla: No adenopathy of concern Left breast: Multi-positional exam fibrocystic changes, well-healed scar from prior biopsy, no dominant masses or nodules of concern Left axilla: No adenopathy of concern Assessment and Plan Assessment: Impression: Right breast mammogram 31177 BIRAD 2 left breast mammogram 11-14-22 BIRAD 2 Fibrocystic breast changes Plan: bilateral mammogram in 1 year with appointment at that time At that point we will go back to bilateral mammogram in a year CC: Dr. Nielsen
== END ==
LOC: WWCWWP 08:31
PROVIDERS: ATTEND Surgery
DX: N60.11 Diffuse cystic mastopathy of right breast (principal); N64.89 Other specified disorders of breast; Z87.891 Personal history of nicotine dependence

== ENCOUNTER → 2023-11-16 | Outpatient (CLI) | payer BC ==
--- NOTE | 2023-11-16 18:53 | MM ---
Reason for Exam: Screening (asymptomatic). Last mammogram was performed 2 year(s) and 1 month(s) ago. Patient History: Menarche at age 12. First Full-Term at age 18. Hysterectomy at age 35. Perimenopausal. Patient has history of breast feeding. 2016, Lumpectomy on the Left side. 11/14/2021, Ultrasound-Guided Core Biopsy on the Right side. 02/18/2022, Lumpectomy on the Right side. 02/18/2022, High risk MG pre op needle loc RT on the right side. Risk Values: Keri 5 year model risk: 1.2%. NCI Lifetime model risk: 9.2%. Prior Study Comparison: 10/31/2021 Right Diagnostic Mammogram, [facility]. 09/19/2022 Right MG 3D diag mammo w/cad RT, [facility]. 11/14/2022 Left MG 3D diag mammo w/cad LT, [facility]. Tissue Density: The breasts are heterogeneously dense, which may obscure small masses. Findings: Analyzed By CAD. Bilateral post excisional changes. Underlying chronic nodularity on both sides made more apparent on 3-D images. There is no suspicious group of microcalcifications or new suspicious mass in either breast. Overall Assessment: Benign, BI-RAD 2 Management: Screening Mammogram of both breasts in 1 year. . Patient should continue monthly self-breast exams. A clinical breast exam by your physician is recommended on an annual basis. This exam should not preclude additional follow-up of suspicious palpable abnormalities. Note on Keri scores and lifetime risk: 1. A Keri score greater than 3% is considered moderate risk. If this is the case, consider specialist referral to assess eligibility for a risk reducing agent. 2. If overall lifetime risk for the development of breast cancer is 20% or higher, the patient may qualify for future screening with alternating mammogram and breast MRI. Electronically signed and approved by: Jessica Beltrán M.D. Radiologist
== END | disposition home or self-care (01) ==
LOC: RADMAMWWP 08:50
PROVIDERS: ATTEND Surgery
DX: Z12.31 Encounter for screening mammogram for malignant neoplasm of breast
CPT/HCPCS: 77063; 77067

== ENCOUNTER → 2023-11-19 | Outpatient (CLI) | payer BC ==
[2023-11-19 13:45] VITALS: BP 171/92; PULSE 88; RESP 17; TEMP 98.6
--- NOTE | 2023-11-19 13:52 | P.PN ---
Subjective Progress Note Date: 11/19/23 Principal diagnosis: history of intraductal papilloma 09/19/22 intraductal papilloma right breast Elina is a 51 year old white female seen in consultation for Dr. Nielsen regarding a biopsy proven intraductal papilloma of the right breast. [place] [address]. This led to additional mammogram and ultrasound evaluation of the right breast. Nothing specific was seen on the mammogram, however on the ultrasound the lesion was seen which was recommended for biopsy. At the 9 o'clock position there was a 1.4 x 1 cm oval mass for which biopsy was recommended. This was performed on 9821. Pathology revealed an intraductal papilloma. The patient does not feel any lumps masses or nodules of concern in either breast. She did have a left breast biopsy in the past which was benign. She does not had any recent trauma or infection or breast. On 02-18-22 she had a needle localozation and lumpectomy, of the area of the papilloma this revealed flat epithleal atypia right breast mammogram 09-19-22 BIRAD 2 11-21-22 Left breast mammogram 9822 BIRAD 2 At this time the patient does not complain of any new lumps masses or nodules of concern in either breast The patient does complain of some asymmetry of the nipple areolar location being slightly lower on the right than on the left, she also has some contour defect concerns of the upper mid breast on the left related to a prior breast biopsy 11-19-23 bilateral mammogram on 11-16-23 personally interpreted BIRAD 2 Patient not complaining of any new lumps, masses, or nodules of concern in either breast She has been having hot flashes, and is taking over the counter estrovan Keri 5 year Risk 1.2% lifetime risk: 9.2% caffiene: 1-2 cups coffee/day nicotine: none; stopped 12 years ago; used to smoke 1/PPD chocolate: daily BCP: stopped at a hysterectomy in 2006; use for about 10 years Family History; no cancer Hormonal History; menarche: 12 A2, breast fed: yes, age at first : 18 menopuase: hysterectomy at 35, left ovaries, done for fibroids Surgical History: Breast biopsy bilateral Hysterectomy [facility] diverticulitis Social History: nicotine: former smoker alcohol: none drugs: none - Constitutional Constitutional: Denies chills, Denies fever - EENT Eyes: denies blurred vision, denies pain Ears: left: decreased hearing, deny: tinnitus Ears, nose, mouth and throat: Reports headache, Denies sore throat - Breasts Breasts: bilateral: as per HPI - Cardiovascular Cardiovascular: Denies chest pain, Denies shortness of breath - Respiratory Respiratory: Denies cough - Gastrointestinal Gastrointestinal: Denies abdominal pain, Denies diarrhea, Denies nausea, Denies vomiting - Genitourinary (Female) Genitourinary: Denies dysuria, Denies hematuria - Menstruation Menstruation: Reports post hysterectomy - Musculoskeletal Musculoskeletal: Denies myalgias - Integumentary Integumentary: Denies pruritus, Denies rash - Neurological Neurological: Denies numbness, Denies weakness - Psychiatric Psychiatric: Denies anxiety, Denies depression - Endocrine Endocrine: Reports fatigue, Denies weight change - Hematologic/Lymphatic Comment: none - Allergic/Immunologic Allergic/Immunologic: Reports as per HPI Past Medical History Past Medical History: No Reported History History of Any Multi-Drug Resistant Organisms: None Reported Past Surgical History: Hysterectomy Past Psychological History: No Psychological Hx Reported Smoking Status: Never smoker Past Alcohol Use History: Occasional Past Drug Use History: None Reported Medications and Allergies Home Medications Medication Instructions Recorded Confirmed Type Acetaminophen Tab [Tylenol Tab] 1,000 mg PO Q6HR PRN 01/23/20 01/23/20 History Bismuth Subsalicylate 524 mg PO Q4H PRN 01/23/20 01/23/20 History [Pepto-Bismol] Ibuprofen [Motrin Ib] 600 mg PO Q8H PRN 01/23/20 01/23/20 History Simethicone [Gas-X] 125 mg PO Q6H PRN 01/23/20 01/23/20 History Amoxicillin/Potassium Clav 1 tab PO Q12HR #20 tab 11/03/20 Rx [Augmentin 875-125 Tablet] Allergies Allergy/AdvReac Type Severity Reaction Status Date / Time No Known Allergies Allergy Verified 02/11/21 10:02 Objective - Vital Signs Vital signs: Intake & Output 11/18/23 11/19/23 11/19/23 18:59 06:59 18:59 Weight 97.522 kg - Constitutional General appearance: Present: cooperative - EENT Eyes: Present: EOMI ENT: Present: hearing grossly normal - Neck Neck: Present: normal ROM - Respiratory Respiratory: bilateral: CTA - Cardiovascular Rhythm: regular Heart sounds: normal: S1, S2 - Integumentary Integumentary: Present: normal turgor - Musculoskeletal Musculoskeletal: Present: gait normal - Psychiatric Psychiatric: Present: A&O x's 3, appropriate affect, intact judgment & insight - Additional findings Additional findings: Breast Exam: BRA: 38B inspection: tattoo right breast, bilateral grade 2 ptosis; right breast slightly larger than the left breast; slightly greater ptosis on the right than on the left Palpaption: Right breast: Multi-positional exam no dominant masses or nodules of concern, well-healed scar from prior surgery fibrocystic changes Right axilla: No adenopathy of concern Left breast: Multi-positional exam fibrocystic changes, well-healed scar from prior biopsy, no dominant masses or nodules of concern Left axilla: No adenopathy of concern Assessment and Plan Assessment: Impression: bilateral mammogram 11-16-23 BIRAD 2 Fibrocystic breast changes/ taking estrovan prior right breast intraductal papilloma Plan: bilateral mammogram in 1 year with appointment at that time; November 2024 discussed patient taking estrovan, will follow closely CC: Dr. Nielsen Additional CC's: Nael Nielsen
== END ==
LOC: WWCWWP 13:37
PROVIDERS: ATTEND Surgery
DX: R92.8 Other abnormal and inconclusive findings on diagnostic imaging of breast (principal); Z48.817 Encounter for surgical aftercare following surgery on the skin and subcutaneous tissue; D24.1 Benign neoplasm of right breast; N64.89 Other specified disorders of breast; N60.11 Diffuse cystic mastopathy of right breast; N60.12 Diffuse cystic mastopathy of left breast; Z86.018 Personal history of other benign neoplasm

== ENCOUNTER → 2024-08-15 | Outpatient (CLI) | payer BC ==
--- NOTE | 2024-08-15 09:41 | MR ---
EXAMINATION TYPE: MR shoulder RT wo con DATE OF EXAM: 08/15/2024 7:47 AM COMPARISON: None. 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 FINDINGS: Rotator Cuff: Mild increased signal in the supraspinatus and infraspinatus tendons distally. Subscapu chan tendon. Rotator cuff muscle bulk is preserved. Acromioclavicular Joint: Mild narrowing and spurring. Mild capsular hypertrophy. Glenohumeral Joint: No significant effusion. No significant spurring. Labrum: Heterogeneous increased signal superior labrum just superior. Biceps Tendon: The long head of biceps is in normal location within bicipital groove. Bone marrow signal: No focal abnormal marrow signal is appreciated. Other: No additional significant abnormality is appreciated. IMPRESSION: 1. Probable superior labral tear. 2. Mild tendinosis of the distal supraspinatus and infraspinatus tendons. [facility], , 08/15/2024 9:38 AM
== END | disposition home or self-care (01) ==
LOC: RADMRIMAIN 07:12
PROVIDERS: ATTEND Family Medicine
DX: M75.101 Unspecified rotator cuff tear or rupture of right shoulder, not specified as traumatic (principal); M67.813 Other specified disorders of tendon, right shoulder